=== PATIENT | female | born 1960 | race Caucasian/White ===

== ENCOUNTER 2016-12-17 20:36 | Emergency (ER) | payer OTHER, MEDICAID ==
--- NOTE | 2016-12-17 21:20 | EDPHY ---
H & P Stated Complaint: abd pain, hx hernia, ETOH abuse Time Seen by Provider: 12/17/16 21:19 - Personal History Current Tetanus/Diphtheria Vaccine: Unsure Current Tetanus Diphtheria and Acellular Pertussis (TDAP): Unsure - Medical/Surgical History Hx Asthma: No Hx Chronic Respiratory Disease: Yes Hx Diabetes: No Hx Cardiac Disease: No Hx Renal Disease: No Hx Cirrhosis: No Hx Alcoholism: Yes Hx HIV/AIDS: No Hx Splenectomy or Spleen Trauma: No Other PMH: COPD, arthritis, ETOH abuse, hernia, appendectomy, tubal ligation - Social History Smoking Status: Current every day smoker Constitutional: Initial Vital Signs Temperature (C) 36.6 C 12/17/16 20:52 Heart Rate 99 12/17/16 20:52 Respiratory Rate 19 12/17/16 20:52 Blood Pressure 144/111 H 12/17/16 20:52 O2 Sat (%) 94 12/17/16 20:52 O2 Delivery Mode Nasal Cannula O2 (L/minute) 4 Allergies/Adverse Reactions: aspirin [Aspirin] Allergy (Verified 12/17/16 20:49) Home Medications: Medication Instructions Recorded Advair 100/50 (*) 12/17/16 Duoneb (*) 12/17/16 Guaifenesin 12/17/16 Hydrocodone Bit/Acetaminophen 12/17/16 Lisinopril 12/17/16 Prevacid 12/17/16 Tylenol Arthritis 12/17/16 Ventolin Hfa Inhaler 12/17/16 Vitamin D3 12/17/16 traMADol 12/17/16 Medical Decision Making ED Course/Re-evaluation: CHIEF COMPLAINT: "My stomach" HISTORY OF PRESENT ILLNESS: The patient is a 56 y/o female, with a history of alcohol abuse and disability, complaining of diffuse abdominal pain for the past several weeks. She has been evaluated in the ED previously for these complaints several months ago and advised to reduce her alcohol intake. She endorses drinking alcohol today. She denies other complaints. REVIEW OF SYSTEMS: A 10 point review of systems was performed and is negative with the exception of the elements mentioned in the history of present illness. PHYSICAL EXAM: HR, BP, O2 Sat, RR. Temp noted General Appearance: Alert, well hydrated, appropriate, and cachectic, smells of alcohol Head: Atraumatic without scalp tenderness or obvious injury Eyes: Pupils equal, round, reactive to light and accommodation, EOMI, no trauma , no injection. Ears: Clear bilaterally, no perforation, normal landmarks Nose: Atraumatic, no rhinorrhea, clear. Throat: There is no erythema or exudates, no lesions, normal tonsils, mucus membranes moist. Neck: Supple, 2+ carotid upstroke, nontender, no lymphadenopathy. Respiratory: No retractions, no distress, no wheezes, and no accessory muscle use. Lungs are clear to auscultation bilaterally. Cardiovascular: Regular rate and rhythm, no murmurs, rubs, or gallops. Bilateral carotid, radial, dorsalis pedis, and posterior tibial pulses intact. Good capillary refill all extremities. Gastrointestinal: Abdomen is soft, nontender, non-distended, no masses, no rebound, no guarding, no peritoneal signs. Musculoskeletal: Normal active ROM of all extremities, atraumatic. Neurological: Alert, appropriate, and interactive. The patient has normal DTRs and non-focal cranial nerves, motor, sensory, and cerebellar exam. Skin: No rashes, good turgor, no nodules on palpation. Past medical history: Alcohol abuse, emphysema, oxygen dependence, wheelchair- bound due to leg injury Past surgical history: Noncontributory Family history: Noncontributory Social history: Lives at [facility] DIAGNOSTICS/PROCEDURES/CRITICAL CARE TIME: Study: CT of the Abdomen Indication: Pain Results: CT scan of the abdomen was obtained. The results of the study are negative for acute process. The study was read by the radiologist, Dr. Richardson. I viewed the images myself on the PACS system. DIFFERENTIAL DIAGNOSIS: The differential diagnosis for the patient's abdominal pain included but was not limited to ovarian cyst, pelvic inflammatory disease, ovarian torsion, urinary tract infection, ectopic , cholecystitis, and appendicitis. MEDICAL DECISION MAKING: This is a chronically-ill 56 y/o female arriving from her assisted living facility complaining of chronic abdominal pain. She is unable to provide clear description of her pain or symptoms. She says these are the same symptoms she had several months ago when she was told to reduce her alcohol intake. Her abdominal exam is benign today. Plan for IV. Labs drawn including CBC, CHEM, lipase, LFT. ISTAT ordered. Plan for abdominal CT to rule out acute process. CT is negative for acute process. Patient will be discharged home with referral to PCP for follow up. I advised her to reduce her alcohol intake as this is likely a contributing factor for her pain. - Data Points Laboratory Results: Laboratory Results 12/17/16 20:45 12/17/16 20:45 12/17/16 12/17/16 21:30 20:45 WBC 7.46 10^3/uL (3.80-9.50) RBC 4.07 L 10^6/uL (4.18-5.33) Hgb 13.1 g/dL (12.6-16.3) POC Hgb 12.2 L gm/dL (12.3-15.9) Hct 38.8 % (38.0-47.0) POC Hct 36 % (35.5-47.5) MCV 95.3 fL (81.5-99.8) MCH 32.2 pg (27.9-34.1) MCHC 33.8 g/dL (32.4-36.7) RDW 11.9 % (11.5-15.2) Plt Count 237 10^3/uL (150-400) MPV 8.8 fL (8.7-11.7) Neut % (Auto) 39.7 % (39.3-74.2) Lymph % (Auto) 46.8 H % (15.0-45.0) Josephine % (Auto) 10.2 % (4.5-13.0) Eos % (Auto) 2.3 % (0.6-7.6) Baso % (Auto) 0.7 % (0.3-1.7) Nucleat RBC Rel Count 0.0 % (0.0-0.2) Absolute Neuts (auto) 2.97 10^3/uL (1.70-6.50) Absolute Lymphs (auto) 3.49 H 10^3/uL (1.00-3.00) Absolute Monos (auto) 0.76 10^3/uL (0.30-0.80) Absolute Eos (auto) 0.17 10^3/uL (0.03-0.40) Absolute Basos (auto) 0.05 10^3/uL (0.02-0.10) Absolute Nucleated RBC 0.00 10^3/uL (0-0.01) Immature Gran % 0.3 % (0.0-1.1) Immature Gran # 0.02 10^3/uL (0.00-0.10) POC Sodium 142 mEq/L (134-144) Sodium 138 mEq/L (134-144) POC Potassium 4.0 mEq/L (3.3-5.0) Potassium 4.5 mEq/L (3.5-5.2) POC Chloride 101 mEq/L (96-108) Chloride 97 mEq/L (97-110) Carbon Dioxide 33 H mEq/l (22-31) Anion Gap 8 mEq/L (8-16) POC BUN 11 mg/dL (7-23) BUN 12 mg/dL (7-23) Creatinine 0.7 mg/dL (0.6-1.0) POC Creatinine 0.9 mg/dL (0.6-1.2) Estimated GFR > 60 Glucose 108 H mg/dL (70-100) POC Glucose 103 H mg/dL (70-100) Calcium 9.0 mg/dL (8.5-10.4) Total Bilirubin 0.3 mg/dL (0.1-1.4) Conjugated Bilirubin 0.3 mg/dL (0.0-0.5) Unconjugated Bilirubin 0.0 mg/dL (0.0-1.1) AST 21 IU/L (14-46) ALT 32 IU/L (9-52) Alkaline Phosphatase 75 IU/L (38-126) Total Protein 7.3 g/dL (6.3-8.2) Albumin 4.2 g/dL (3.5-5.0) Lipase 208.0 IU/L (23-300) Point of Care Test Results: 12/17/16 21:30 POC Sodium 142 POC Potassium 4.0 POC Chloride 101 POC BUN 11 POC Creatinine 0.9 POC Glucose 103 H Departure - Departure Disposition: Home, Routine, Self-Care Clinical Impression: Abdominal pain Qualifiers: Qualifier Code: (R10.84) Generalized abdominal pain Alcohol intoxication Qualifiers: Qualifier Code: (F10.120) Alcohol abuse with intoxication, uncomplicated Instructions: Alcohol Intoxication (ED), Chronic Abdominal Pain (ED) Additional Instructions: Follow up with your primary care provider for symptoms not improved next week. Referrals: [facility] [Outside] - As per Instructions Report Scribed for: Jason Solomon Report Scribed by: Mely Bryant Date of Report: 12/17/16 Time of Report: 21:58
[2016-12-17 21:35] LABS: ALANINE AMINOTRANSFERASE 32 IU/L (9-52); ALBUMIN 4.2 g/dL (3.5-5.0); ALKALINE PHOSPHATASE 75 IU/L (38-126); ANION GAP 8 mEq/L (8-16); ASPARTATE AMINOTRANSFERASE 21 IU/L (14-46); BILIRUBIN,TOTAL 0.3 mg/dL (0.1-1.4); BILIRUBIN-CONJUGATED 0.3 mg/dL (0.0-0.5); CARBON DIOXIDE 33 mEq/l (22-31); CHLORIDE 97 mEq/L (97-110); CREATININE 0.7 mg/dL (0.6-1.0); GLOMERULAR FILTRATION RATE > 60; GLUCOSE 108 mg/dL (70-100); POTASSIUM 4.5 mEq/L (3.5-5.2); SODIUM 138 mEq/L (134-144); TOTAL PROTEIN 7.3 g/dL (6.3-8.2)
[2016-12-17 21:37] LABS: % IMMATURE GRANULYOCYTES 0.3 % (0.0-1.1); ABSOLUTE IMMATURE GRANULOCYTES 0.02 10^3/uL (0.00-0.10); ADD DIFF? NO; ADD MORPH? NO; ADD SCAN? NO; ATYPICAL LYMPHOCYTE FLAG 20 (0-99); FRAGMENT RBC FLAG 0 (0-99); HEMATOCRIT 38.8 % (38.0-47.0); HEMOGLOBIN 13.1 g/dL (12.6-16.3); LEFT SHIFT FLG 0 (0-99); LIPEMIA HEMOLYSIS FLAG 90 (0-99); MEAN CELL HEMOGLOBIN 32.2 pg (27.9-34.1); MEAN CELL HEMOGLOBIN CONCENTR. 33.8 g/dL (32.4-36.7); MEAN CELL VOLUME 95.3 fL (81.5-99.8); MEAN PLATELET VOLUME 8.8 fL (8.7-11.7); PLATELET CLUMPS FLAG 0 (0-99); PLATELET COUNT 237 10^3/uL (150-400); RED BLOOD CELL COUNT 4.07 10^6/uL (4.18-5.33); RED CELL DISTRIBUTION WIDTH 11.9 % (11.5-15.2)
[2016-12-17] MEDS ORDERED: IOPAMIDOL (ISOVUE-300) 100 ML BTL IV ONE (21:39)
--- NOTE | 2016-12-17 22:19 | CT ---
CT Scan of the Abdomen and Pelvis With Contrast Indication: Upper abdominal pain in a 56-year-old female. Technique: Multidetector CT images of the abdomen and pelvis were obtained following the uneventful i ntravenous administration of 90 mL Isovue-300 contrast. No oral contrast was administered. Axial imag es are obtained at 5 mm intervals and reformatted at 1.5 mm thickness. The examination is reviewed on the workstation at multiple window/level settings. Sagittal and coronal reformations are performed. Dose reduction techniques were utilized for this examination. No previous examinations are available for comparison. Abdomen: Lung bases: Normal. No pleural fluid. A moderate hiatal hernia is seen with approximately one quarter of the stomach present above the diap hragm. Liver: Normal. Biliary system: Normal gallbladder. No intra or extrahepatic dilatation. Spleen: Normal. Pancreas: Normal. Adrenals: Normal. Kidneys: No obstruction or solid masses. Abdominal Aorta: There is rather extensive aortic calcification without aneurysmal dilatation. There is also prominent calcified plaque seen involving the iliac arteries bilaterally which could result in hemodynamically significant stenosis. No bowel obstruction, ascites, or retroperitoneal lymphadenopathy. CT Pelvis Findings: The appendix is surgically absent. A few scattered colonic diverticula are seen w ithout diverticulitis. No ascites is appreciated. Severe degenerative changes are noted involving the right hip with an associated joint effusion. Impression: 1. No acute abdominal or pelvic abnormality. 2. Moderate-sized hiatal hernia. 3. Severe degenerative changes of the right hip. 4. See above report for additional findings. A preliminary report was called to Dr. Jason Solomon at 2215 hours in the Emergency Department.
[2016-12-17 22:27] VITALS: RESP 20; O2SAT 96
[2016-12-17 22:33] LABS: COLOR COLORLESS; LEUKOCYTE ESTERASE,URINE NEGATIVE (NEGATIVE); NITRITE,URINE NEGATIVE (NEGATIVE)
[2016-12-17 22:52] VITALS: BP 133/81; PULSE 78; TEMP 98.1
== END 2016-12-17 23:11 | disposition home or self-care (01) ==
LOC: EDUNIT#
DX: R10.84 Generalized abdominal pain (principal); F10.120 Alcohol abuse with intoxication, uncomplicated; J44.9 Chronic obstructive pulmonary disease, unspecified; F17.200 Nicotine dependence, unspecified, uncomplicated; Z90.49 Acquired absence of other specified parts of digestive tract
CPT/HCPCS: 74177; 99285; Q9967; 82947-QW

== ENCOUNTER 2018-04-10 08:08 | Day surgery (SDC) | payer OTHER, MEDICAID ==
[2018-04-10] MEDS ORDERED: LIDOCAINE 1% 2 ML INJ ID PRN (08:25)
[2018-04-10] MEDS ORDERED: LR 1,000 ML IV ONE (08:25)
--- NOTE | 2018-04-10 10:11 | PDGENHP ---
History & Physical Chief Complaint: n/v colon cancer screening History of Present Illness: hx n/v, abdo reynaga query reflux. needs screening colonoscopy Pertinent Past, Social, Family History: tobacco 1/2 ppd x 5 years, on anfd off priro to taht. alcohol once month. fhx - young from COPD, no knonw colon cancer Relevant Physical Exam: A+Ox3. occ wheeze, no rales or rhonchi. S1S2. +BS, soft epi tenderness Cardiorespiratory Assessment: class 3
--- NOTE | 2018-04-10 10:20 | PDANEPAE ---
ANE History of Present Illness n/v, screening ANE Past Medical History - Cardiovascular History Hx Hypertension: Yes Hx Arrhythmias: No Hx Chest Pain: Yes Hx Coronary Artery / Peripheral Vascular Disease: No Hx CHF / Valvular Disease: Yes Hx Palpitations: No - Pulmonary History Hx COPD: Yes Hx Asthma/Reactive Airway Disease: No Hx Recent Upper Respiratory Infection: Yes Hx Oxygen in Use at Home: No Hx Sleep Apnea: No Sleep Apnea Screening Result - Last Documented: Negative Pulmonary History Comment: 4 L N/C - Neurologic History Hx Cerebrovascular Accident: No Hx Seizures: No Hx Dementia: No - Endocrine History Hx Diabetes: No - Renal History Hx Renal Disorders: No - Liver History Hx Hepatic Disorders: No - Neurological & Psychiatric Hx Hx Neurological and Psychiatric Disorders: No - Cancer History Hx Cancer: No - GI History Hx Gastrointestinal Disorders: No - Surgical History Prior Surgeries: CATARACTS, APPY, SMALL BOWEL OBSTRUCTION, TUBES TIED, LEFT LEG SKIN GRAFTS, LEFT BREAST BX, LUNG BX ANE Review of Systems Review of Systems: ANE Patient History - Allergies Allergies/Adverse Reactions: aspirin [Aspirin] Allergy (Verified 04/10/18 08:32) - Home Medications Home Medications: Advair 100/50 (*) 12/17/16 [Last Taken 04/09/18] Duoneb (*) 12/17/16 [Last Taken 04/09/18] Guaifenesin 12/17/16 [Last Taken 04/09/18] Hydrocodone Bit/Acetaminophen 12/17/16 [Last Taken 04/09/18 23:00] Lisinopril 12/17/16 [Last Taken 04/09/18] Prevacid 12/17/16 [Last Taken 04/09/18] Tylenol Arthritis 12/17/16 [Last Taken 2 Weeks Ago ~03/27/18] Ventolin Hfa Inhaler 12/17/16 [Last Taken 04/10/18 06:00] Vitamin D3 12/17/16 [Last Taken 04/09/18] traMADol 12/17/16 [Last Taken 04/09/18] - NPO status NPO Since - Liquids (Date): 04/09/18 NPO Since - Liquids (Time): 23:00 NPO Since - Solids (Date): 04/09/18 NPO Since - Solids (Time): 07:30 - Smoking Hx Smoking Status: Current every day smoker ANE Labs/Vital Signs - Vital Signs Blood Pressure: 117/66 Heart Rate: 98 Respiratory Rate: 20 O2 Sat (%): 99 Height: 160.02 cm Weight: 56.245 kg ANE Physical Exam - Airway Neck exam: FROM Mallampati Score: Class 2 Mouth exam: poor dentition - Pulmonary Pulmonary: reduced air movement, expiratory wheeze - Cardiovascular Cardiovascular: regular rate and rhythym - ASA Status ASA Status: III ANE Anesthesia Plan Total IV Anesthesia: Yes
[2018-04-10] MEDS ORDERED: PROPOFOL/EMULSION 500 MG/50 ML BOTTLE IV ONE (10:22)
[2018-04-10] MEDS ORDERED: NALOXONE HCL 0.4 MG/ML INJ IVP PRN (10:50)
--- NOTE | 2018-04-10 10:54 | POSTANESTH ---
Post Anesthetic Evaluation Cardiovascular Status: Normal, Stable Respiratory Status: Normal, Stable Level of Consciousness/Mental Status: Can Participate in Eval Pain Control: Adequate, Prn Tx Ordered Nausea/Vomiting Control: Adequate, Prn Tx Ordered Complications Possibly Related to Anesthesia: None Noted
[2018-04-10] MEDS ORDERED: HYDROCODONE/APAP 5/325 TAB ONE (11:35)
--- NOTE | 2018-04-10 12:03 | GIREPORT ---
[facility] Surgical Services - Endoscopy Department Patient Name: Mena Hensley Procedure Date: 04/10/2018 10:31 AM Patient Type: Outpatient Attending MD/ ER Physician: Vinod Dyer Procedure: Colonoscopy Indications: Screening for colorectal malignant neoplasm Providers: Yaya Rubi MD Referring MD: Cyndy Emmanuel MD Medicines: Total IV Anesthesia (TIVA) = IV general w/o airway Complications: No immediate complications. Estimated blood loss: None. Description of Procedure: After obtaining informed consent, the scope was passed under direct vis ion. Throughout the procedure, the patient's blood pressure, pulse, and oxyg en saturations were monitored continuously. The was introduced through the anus and advanced to the terminal ileum, with identification of the appendic eal orifice and IC valve. The colonoscopy was performed without difficulty. The patient tolerated the procedure well. The quality of the bowel preparat ion was good. Findings: The digital rectal exam was normal. The terminal ileum appeared normal. A few medium-mouthed diverticula were found in the sigmoid colon and descending colon. The exam was otherwise without abnormality. Estimated Blood Loss: Estimated blood loss: none. Post Op Diagnosis: - The examined portion of the ileum was normal. - Diverticulosis in the sigmoid colon and in the descending colon. - The examination was otherwise normal. - No specimens collected. Recommendation: - High fiber diet indefinitely. - 30-35 grams of dietary fiber per day. Can use supplemental fiber. - A high fiber diet may decrease risk of complications from diverticulo sis. There is no need to avoid seeds or nuts. - Repeat colonoscopy in 10 years for screening purposes. - Patient has a contact number available for emergencies. The signs and symptoms of potential delayed complications were discussed with the pat ient. Return to normal activities tomorrow. Written discharge instructions we re provided to the patient. - Continue present medications. - Discharge patient to home (ambulatory). - Return to primary care physician as previously scheduled. - See EGD for other recommendations - Thank you for allowing me to help in your patient's care. Do not hesi dumont to call with any questions. Elicia Javier M.D Yaya Rubi MD 04/10/2018 12:03:18 PM This report has been signed electronicallyMathew MD Elicia Number of Addenda: 0 Note Initiated On: 04/10/2018 10:31 AM Total Procedure Duration Time 0 hours 10 minutes 56 seconds [email or web address]
[2018-04-10 12:05] VITALS: BP 137/70
--- NOTE | 2018-04-10 12:05 | GIREPORT ---
Formerly [facility] Surgical Services - Endoscopy Department Patient Name: Mena Hensley Procedure Date: 04/10/2018 10:15 AM Patient Type: Outpatient Attending MD/ ER Physician: Vinod Dyer Procedure: Upper GI endoscopy Indications: Epigastric abdominal pain, Nausea with vomiting Providers: Yaya Rubi MD Referring MD: Cyndy Emmanuel MD Medicines: Total IV Anesthesia (TIVA) = IV general w/o airway Complications: No immediate complications. Estimated blood loss: Minimal. Description of Procedure: After obtaining informed consent, the endoscope was passed under direct vision. Throughout the procedure, the patient's blood pressure, pulse, and oxygen saturations were monitored continuously. The Endoscope was intro duced through the mouth, and advanced to the third part of duodenum. The uppe r GI endoscopy was accomplished without difficulty. The patient tolerated th e procedure well. Findings: The examined esophagus was normal. A medium-sized hiatal hernia was present. Diffuse mild inflammation characterized by erythema, friability and granularity was found in the gastric antrum. Biopsies were taken with a cold forceps for histology. Estimated blood loss was minimal. The examined duodenum was normal. The exam was otherwise without abnormality. Estimated Blood Loss: Estimated blood loss was minimal. Post Op Diagnosis: - Normal esophagus. - Medium-sized hiatal hernia. - Gastritis. Biopsied. - Normal examined duodenum. - The examination was otherwise normal. Recommendation: - Await pathology results. - My office will call with the pathology result with 5-7 days. If you h ave not heard from my office by 12-14, do not assume the pathology is genie l, please call [phone] to get the pathology reults. - Use Prevacid (lansoprazole) 30 mg PO daily. akwe 30-60 minutes befoer breakfast - Use Zantac (ranitidine) 300 mg PO at bedtime. - Perform a colonoscopy today. - Return to GI clinic in 4 weeks. - Return to primary care physician as previously scheduled. - Thank you for allowing me to help in your patient's care. Do not hesi dumont to call with any questions. Attending Participation: I personally performed the entire procedure. Elicia Javier M.D Yaya Rubi MD 04/10/2018 12:04:27 PM This report has been signed electronicallyMathew MD Elicia Number of Addenda: 0 Note Initiated On: 04/10/2018 10:15 AM [email or web address]
== END 2018-04-10 12:20 | disposition home or self-care (01) ==
LOC: FSGY 08:08
PROVIDERS: ATTEND Internal Medicine Gastroenterology
PROC: 0DB68ZX Excision of Stomach, Via Natural or Artificial Opening Endoscopic, Diagnostic (ICD-10-PCS; principal; 2018-04-10 09:45)
PROC: 0DJD8ZZ Inspection of Lower Intestinal Tract, Via Natural or Artificial Opening Endoscopic (ICD-10-PCS; 2018-04-10 09:45)
DX: K57.30 Diverticulosis of large intestine without perforation or abscess without bleeding (principal); K44.9 Diaphragmatic hernia without obstruction or gangrene
CPT/HCPCS: J2704

== ENCOUNTER → 2018-07-11 | Outpatient (CLI) | payer OTHER, MEDICAID | DX: R13.10 Dysphagia, unspecified (principal); R10.11 Right upper quadrant pain; R11.0 Nausea; K44.9 Diaphragmatic hernia without obstruction or gangrene ==

== ENCOUNTER → 2019-02-08 | Outpatient (CLI) | payer OTHER, MEDICAID ==
[~2019-02-08] MED LIST: IOPAMIDOL (ISOVUE-300) 100 ML BTL ONE
== END ==
LOC: FIMAGING 14:45
PROVIDERS: ATTEND Surgery
DX: K43.9 Ventral hernia without obstruction or gangrene (principal)
CPT/HCPCS: 74177; Q9967

== ENCOUNTER 2019-02-13 07:31 | Inpatient (IN) | payer OTHER, MEDICAID ==
[2019-02-13] MEDS ORDERED: methylPREDNISolone SOD SUCC 125 MG/2 ML VIAL IVP ONE (07:36)
[2019-02-13] MEDS ORDERED: IPRATROPIUM/ALBUTEROL 3 ML DEYVIAL IH ONE (07:36)
--- NOTE | 2019-02-13 07:41 | EDPHY ---
H & P Time Seen by Provider: 02/13/19 07:35 HPI/ROS: CHIEF COMPLAINT: Shortness of breath HISTORY OF PRESENT ILLNESS: 59-year-old female with oxygen-dependent COPD presents with shortness of breath. Onset of productive cough and shortness of breath 3 days ago. Gradually increasing shortness of breath, now short of breath at rest. Cough is productive of yellowish sputum. Albuterol inhaler without relief. Albuterol nebulizer in route. No fever or chills. On 4 L of oxygen by nasal cannula chronically. REVIEW OF SYSTEMS: complete 10 point ROS reviewed and is negative except for the noted elements in the HPI - Medical/Surgical History Hx Asthma: No Hx Chronic Respiratory Disease: Yes Hx Diabetes: No Hx Cardiac Disease: No Hx Renal Disease: No Hx Cirrhosis: No Hx Alcoholism: Yes Hx HIV/AIDS: No Hx Splenectomy or Spleen Trauma: No Other PMH: COPD, arthritis, ETOH abuse, hernia, appendectomy, tubal ligation - Social History Smoking Status: Current every day smoker - Physical Exam Exam: General Appearance: Alert, pleasant, nontoxic Eyes: Pupils equal and round, no conjunctival pallor or injection ENT, Mouth: Mucous membranes moist Neck: Normal inspection Respiratory: Tachypneic, lungs are clear anteriorly Cardiovascular: Regular tachycardia Gastrointestinal: Abdomen is soft and nontender Neurological: A&O, nonfocal exam Skin: Warm and dry Extremities: Normal inspection Psychiatric: Mood and affect normal Constitutional: Initial Vital Signs Temperature (C) 37.2 C 02/13/19 07:31 Heart Rate 114 H 02/13/19 07:31 Respiratory Rate 20 02/13/19 07:31 Blood Pressure 118/67 02/13/19 07:31 O2 Sat (%) 100 02/13/19 07:31 O2 Delivery Mode Nasal Cannula O2 (L/minute) 6 Allergies/Adverse Reactions: aspirin [Aspirin] Allergy (Verified 02/13/19 07:37) Home Medications: Medication Instructions Recorded Albuterol [Proventil Inhaler HFA 2 puffs IH Q4H PRN 12/17/16 (*)] Cholecalciferol Vit D3 [Vitamin D3 4,000 units PO DAILY@08 12/17/16 2000 units tab (OTC)] Fluticasone/Salmeter 250/50Mcg 1 puffs IH BID 12/17/16 [Advair 250/50 (*)] Hydrocodone/APAP 5/325 [Mendon 1 each PO TID@10,14,23 12/17/16 5/325 (*)] Ipratropium/Albuterol [Duoneb (*)] 3 ml IH QID@07,11,15,19 12/17/16 Lisinopril [Zestril 5 mg (*)] 5 mg PO DAILY@08 12/17/16 guaiFENesin [Mucinex 600 MG (*)] 600 mg PO BID PRN 12/17/16 Acetaminophen [Tylenol ES 500 mg 1,000 mg PO TID PRN 02/13/19 (*)] Bisacodyl [Bisacodyl (*)] 5 mg PO PRN PRN 02/13/19 Docusate Sodium [Colace 100 MG (*)] 100 mg PO HS 02/13/19 Herbals/Supplements -Info Only 1 ea PO DAILY 02/13/19 Ipratropium/Albuterol [Duoneb (*)] 3 ml IH HS PRN 02/13/19 Lansoprazole [Prevacid] 30 mg PO DAILY@1130 02/13/19 Nystatin Powder [Mycostatin Powder 1 didier TP BID 02/13/19 (RX)] Ranitidine HCl [Zantac] 300 mg PO HS 02/13/19 Tiotropium Inhaler [Spiriva 18 mcg IH DAILY@1130 02/13/19 Handihaler] Medical Decision Making - Diagnostics Imaging Results: CXR: COPD, no definite infiltrate Imaging: I viewed and interpreted images myself ED Course/Re-evaluation: This patient presents with a COPD exacerbation and likely pneumonia. She meets SIRS criteria with tachycardia, tachypnea and leukocytosis. Initial lactate is normal. A DuoNeb and Solu-Medrol 125 mg IV given on patient arrival. Chest x- ray reveals no evidence of infiltrate. Blood cultures were drawn and antibiotics given because of concern for pneumonia. Feels slightly better after duoneb. Continued SOB and increased oxygen requirement, c/w COPD exacerbation. Doubt alternative dx such as PE or pulm edema. The hospitalist service was consulted for admission. Differential Diagnosis: includes though not limited to pneumonia, PE, empyema, pulm edema, ACS - Data Points Laboratory Results: Laboratory Results 02/13/19 07:55 02/13/19 07:55 Microbiology Results: MICROBIOLOGY 02/13/19 08:30 Blood Blood Culture - Preliminary 02/13/19 07:55 Blood Blood Culture - Preliminary Medications Given: Hydrocodone Bitart/Acetaminophen (Mendon 5/325) 1 tab PO TID@10,14,23 [facility] Stop: 02/23/19 17:29 Last Admin: 02/14/19 22:53 Dose: 1 tab Albuterol/Ipratropium (Duoneb) 3 ml IH Q6HRS [facility] Stop: 08/12/19 11:59 Last Admin: 02/15/19 05:20 Dose: 3 ml Azithromycin (Zithromax) 250 mg PO DAILY [facility] PRN Reason: Protocol Stop: 03/16/19 08:59 Last Admin: 02/14/19 09:12 Dose: 250 mg Cholecalciferol (Vitamin D) 4,000 units PO DAILY@08 [facility] Stop: 08/13/19 07:59 Last Admin: 02/14/19 09:12 Dose: 4,000 units Docusate Sodium (Colace) 100 mg PO HS [facility] Stop: 08/12/19 20:59 Last Admin: 02/14/19 19:56 Dose: 100 mg Enoxaparin Sodium (Lovenox) 40 mg SC DAILY [facility] Stop: 08/12/19 08:59 Last Admin: 02/14/19 09:12 Dose: 40 mg Famotidine (Pepcid) 40 mg PO HS [facility] Stop: 08/12/19 20:59 Last Admin: 02/14/19 19:56 Dose: 40 mg Guaifenesin (Mucinex) 600 mg PO BID PRN PRN Reason: congestion Stop: 08/12/19 17:06 Last Admin: 02/14/19 19:55 Dose: 600 mg Lisinopril (Zestril) 5 mg PO DAILY@08 [facility] Stop: 08/13/19 07:59 Last Admin: 02/14/19 09:14 Dose: 5 mg Melatonin (Melatonin) 3 mg PO HS [facility] Stop: 08/12/19 20:59 Last Admin: 02/15/19 00:51 Dose: Not Given Nicotine (Nicoderm Cq) 14 mg TD DAILY [facility] Stop: 08/13/19 17:44 Last Admin: 02/14/19 18:03 Dose: 14 mg Nystatin (Mycostatin Powder) 1 didier TP BID [facility] Stop: 03/15/19 20:59 Last Admin: 02/14/19 19:56 Dose: 1 didier Pantoprazole Sodium (Protonix) 40 mg PO DAILY@1130 [facility] Stop: 08/13/19 11:29 Last Admin: 02/14/19 11:46 Dose: 40 mg Prednisone (Prednisone) 20 mg PO BIDMEAL [facility] Stop: 08/12/19 17:59 Last Admin: 02/14/19 18:02 Dose: 20 mg Fluticasone/Salmeterol (Advair) 1 puffs IH BID [facility] Stop: 08/12/19 20:59 Last Admin: 02/14/19 21:15 Dose: 1 puffs Discontinued Medications Hydrocodone Bitart/Acetaminophen (Mendon 5/325) 1 tab PO EDNOW ONE Stop: 02/13/19 09:26 Last Admin: 02/13/19 09:29 Dose: 1 tab Albuterol/Ipratropium (Duoneb) 3 ml IH EDNOW ONE Stop: 02/13/19 07:37 Last Admin: 02/13/19 07:56 Dose: 3 ml Azithromycin 500 mg/ Sodium (Chloride) 255 mls @ 255 mls/hr IV EDNOW ONE PRN Reason: Protocol Stop: 02/13/19 09:43 Last Admin: 02/13/19 10:07 Dose: 255 mls Cefepime HCl 2 gm/ Sodium (Chloride) 100 mls @ 200 mls/hr IV EDNOW ONE PRN Reason: Protocol Stop: 02/13/19 09:09 Last Admin: 02/13/19 09:21 Dose: 100 mls Methylprednisolone Sodium Succinate (Solu-Medrol) 125 mg IVP EDNOW ONE Stop: 02/13/19 07:37 Last Admin: 02/13/19 07:56 Dose: 125 mg Departure - Departure Disposition: [facility] Acute Clinical Impression: Chronic obstructive pulmonary disease with acute exacerbation Pneumonia Qualifiers: Pneumonia type: due to unspecified organism Laterality: unspecified laterality Lung location: unspecified part of lung Qualified Code(s): J18.9 - Pneumonia, unspecified organism Condition: Fair
[2019-02-13 08:06] LABS: PLATELET COUNT 205 10^3/uL (150-400)
[2019-02-13] MEDS ORDERED: CEFEPIME HCL 2 GM in NS 100 ML IV ONE (08:40)
[2019-02-13] MEDS ORDERED: AZITHROMYCIN IV 500 MG in NS 250 ML IV ONE (08:44)
[2019-02-13] MEDS ORDERED: ZOLPIDEM TARTRATE 5 MG TAB PO PRN (08:56)
[2019-02-13] MEDS ORDERED: ACETAMINOPHEN 325 MG TAB PO PRN (08:56)
--- NOTE | 2019-02-13 09:00 | PDGENHP ---
History and Physical History and Physical: CC: Shortness of breath HISTORY: This patient with known severe COPD has had severe worsening shortness of breath and cough with production progressive over 4 days. She also has had some pain in the left upper anterior chest that is somewhat pleuritic. There is no swelling or pain in the legs. She thinks she may have had fever at home but did not measure. She comes into the ER today with severe respiratory distress. She came by paramedics transport. She has not been around anyone else who is sick, has had not had travel or recent hospitalization Notably she was seen by Dr. Tijerina in pulmonology clinic just recently for preop assessment as she is preparing to schedule of ventral hernia repair surgery with Dr. Kahn in the near future. She was felt to be stable at the time of her visit with Dr. Tijerina. At home she uses duo nebs, albuterol inhaler, Advair 250, Spiriva inhaler, and guaifenesin. Her symptoms are as above despite all of this treatment. In the ER she was felt to possibly have pneumonia and was given Rocephin, azithromycin, Solu-Medrol, bronchodilators. She feels slightly better after these treatments but still quite short of breath. ROS: A comprehensive 10 system review revealed no other significant findings She does not tolerate aspirin PAST MEDICAL HISTORY: Severe COPD Chronic hypoxemic respiratory failure Ongoing tobacco abuse History of alcohol abuse Hypertension Abdominal hernia ventral Multiple leg injuries Reflux Wheelchair-bound Appendectomy Breast surgery Tubal ligation FAMILY MEDICAL HISTORY: She is not aware of any family history but is not in close contact with her family SOCIAL HISTORY: Sounds like she has quit drinking but continues to smoke Chronically wheelchair-bound due to hip arthritis MEDICATIONS: The patients list has been reconciled by our clinical pharmacist in the EMR. I have reviewed the list and ordered appropriate medicines. PHYSICAL EXAMINATION: Vital Signs: Blood pressure stable, pulse 114, oxygenating on 4-6 L oxygen afebrile Gum Sprayer: Sinus Examination: General: alert, oriented, good mentation, relaxed Skin: warm, dry, good color, no rash HEENT: normal Neck: no mass or jvd Resps: Obviously labored with evidence of air hunger and use of accessory muscles of breathing Lungs: Absent breath sounds in that I can not actually hear them with my stethoscope during breathing Heart: regular, no murmur Abdomen: soft, nondistended, nontender, +BS, no mass Upper Extremities: normal Lower Extremities: no edema, warm No Bleeding or bruising Neurologic: normal speech/language, normal retort operator, no focal weakness IV site: looks normal LABORATORY DATA: WBC 11, hemoglobin 11, normocytic, platelets normal On chemistry the CO2 is elevated at 36, there is a normal anion gap and renal function and electrolytes. I have ordered a procalcitonin this comes back normal at 0.04 MICROBIOLOGY: Blood cultures obtained in the ER pending Respiratory pathogen panel has been done and is negative RADIOLOGY STUDIES: Two-view chest x-rays done in the ER and I reviewed the images which show severe COPD but nothing else acute ASSESSMENT: * Acute hypoxemic/hypercarbic resp failure, with chronic hypoxemic respiratory failure on 4 L at home * Acute copd exacerbation * suspect viral respiratory infection * ER diagnosis of pneumonia is not supported by CXR and there is no fever -I have checked a procalcitonin which is negative and respiratory pathogen panel which is also negative * Abdominal hernia supraumbilical for which she has been follow up with Dr. Kahn and has plans for surgery in the near future * Chronic knee ankle and toe pains and cramps; history of leg injuries; wheelchair-bound for severe hip arthritis * HTN * tobacco abuse, ongoing * Chronic alcohol abuse At this time she remains in some respiratory distress despite steroids and bronchodilators by nebulizer. The cause of this episode is unclear to me. Her chest x-ray is unrevealing other than evidence of COPD. She has no fever, normal procalcitonin, and negative respiratory pathogen PCR panel. Given her cough which is productive I would be concerned about infection. However with chest pain that she describes are also be worried about PE and will get a CT scan to evaluate that PLANS: * Inpatient admission to [facility] * Continue steroids high dose orally as well as scheduled bronchodilators, long- acting bronchodilator steroid combo * Flutter valve device * Will continue azithromycin at this time which was started in the ER * I have ordered a CT scan chest to rule out PE and look further for any signs of pneumonia * If there is evidence that we come up with of pneumonia will add Rocephin * I have asked for pulmonology consultation to at least have them aware of her presence and situation and K she worsens in which case she might need transfer to OR your ICU and assisted ventilation * I had a long talk with the patient about end of life care issues. At this point she would like to have full cor order in her chart however in the event that her condition changes at any point to where it was felt she would not survive a resuscitation attempt with her without return of circulation, she would want to be changed to no cor - I have ordered full cor I have reviewed the patient's case in detail with Dr. Breezy Cardozo I have reviewed the patient's past medical records as part of this assessment, including previous ER visit records and outpatient clinic records including pulmonology Clinic
[2019-02-13] MEDS ORDERED: HYDROCODONE/APAP 5/325 TAB PO ONE (09:25)
[2019-02-13] MEDS: IPRATROPIUM/ALBUTEROL 3 ML DEYVIAL IH SCH ×3 (14:19→22:06)
[2019-02-13] MEDS: ENOXAPARIN 40 MG/0.4 ML SYR SC SCH (16:44)
[2019-02-13] MEDS ORDERED: ALBUTEROL 60 PUFFS/8 GM MDI IH PRN (17:07)
[2019-02-13] MEDS ORDERED: BISACODYL 5 MG EC TAB PO PRN (17:07)
[2019-02-13] MEDS: HYDROCODONE/APAP 5/325 TAB PO SCH ×2 (17:32→23:05)
[2019-02-13] MEDS ORDERED: IOPAMIDOL (ISOVUE 370) 100 ML BTL IV ONE (17:40)
--- NOTE | 2019-02-13 17:58 | PDMN ---
Medical Necessity Medical necessity: Pt meets inpt criteria per MD order and MCG M-100, Chronic Obstructive Pulmonary Disease, A-2 days. 59 y/o w/hx severe COPD presents to ED w/worsening SOB, cough, and pleuritic cp, admitted w/COPD exacerbation, etiology unclear, persistent resp distress despite steroids and bronchodilators initially, tachycardic, needing 4-6 LO2 (uses 4 L chronically). Other PMH includes hx alcohol abuse, ongoing tobacco use, HTN, mult leg injuries, wc bound. Anticipate>2Mn for ongoing eval/managment of above given pt's severe underlying COPD w/current exacerbation and comorbidities.
[2019-02-13] MEDS: predniSONE 20 MG TAB PO SCH (18:46)
[2019-02-13] MEDS: guaiFENesin 600 MG TAB.ER PO PRN (21:29)
[2019-02-13] MEDS: FAMOTIDINE 20 MG TAB PO SCH (21:30)
[2019-02-13] MEDS: DOCUSATE SODIUM 100 MG CAP PO SCH (21:30)
[2019-02-13] MEDS: NYSTATIN POWDER 15 GM BTL TP SCH (21:30)
[2019-02-13] MEDS: FLUTICASONE/SALMETER 250/50MCG DISKUS IH SCH (22:04)
[2019-02-14] MEDS: MELATONIN 3 MG TAB PO SCH (00:08)
[2019-02-14] MEDS: IPRATROPIUM/ALBUTEROL 3 ML DEYVIAL IH SCH ×4 (05:16→21:15)
[2019-02-14] MEDS: HYDROCODONE/APAP 5/325 TAB PO SCH ×3 (09:12→22:53)
[2019-02-14] MEDS: AZITHROMYCIN 250 MG TAB PO SCH (09:12)
[2019-02-14] MEDS: CHOLECALCIFEROL VIT D3 2,000 UNITS TAB/CAP PO SCH (09:12)
[2019-02-14] MEDS: ENOXAPARIN 40 MG/0.4 ML SYR SC SCH (09:12)
[2019-02-14] MEDS: predniSONE 20 MG TAB PO SCH ×2 (09:14→18:02)
[2019-02-14] MEDS: LISINOPRIL 5 MG TAB PO SCH (09:14)
[2019-02-14] MEDS: FLUTICASONE/SALMETER 250/50MCG DISKUS IH SCH ×2 (09:15→21:15)
[2019-02-14] MEDS: NYSTATIN POWDER 15 GM BTL TP SCH ×2 (09:15→19:56)
[2019-02-14] MEDS: PANTOPRAZOLE SODIUM 40 MG TAB PO SCH (11:46)
--- NOTE | 2019-02-14 14:28 | HOSPPROG ---
Hospitalist Progress Note Assessment/Plan: 1. Acute hypoxemic/hypercarbic resp failure, with chronic hypoxemic respiratory failure on 4 L at home - Patient in respiratory distress on admission - In setting of COPD exacerbation, management as below - CXR on admission showing peribronchial thickening, COPD changes - CTA Chest performed on admission, negative for PE - Wean 02 as tolerated, back on home 4L this AM - Resp PCR negative on admission 2. Acute copd exacerbation - S/p IV Solumedrol in ED - Will continue Prednisone for total 5 day course (Day 2/5) - Continue Azithromycin for total 5 day course - Continue home inhalers, ordered scheduled and PRN nebs as IP 3. HTN - Continue home Lisinopril 4. Tobacco abuse, ongoing - Counseled on cessation - Nicotine patch if desired 5. Chronic alcohol abuse - Counseled on cessation - Monitor for signs of withdrawal FEN: Regular DVT PPx: Lovenox Code: FULL Dispo: Pending clinical course Subjective: Patient reports breathing is improved this AM Objective: Vital Signs Temp Pulse Resp BP Pulse Ox 36.8 C 93 22 H 99/58 L 95 02/14/19 12:40 02/14/19 12:40 02/14/19 12:40 02/14/19 12:40 02/14/19 12:40 02/13/19 02/14/19 02/15/19 05:59 05:59 05:59 Intake Total 670 Output Total 300 350 Balance 370 -350 - Physical Exam Constitutional: chronically ill appearing Eyes: PERRL Ears, Nose, Mouth, Throat: moist mucous membranes Cardiovascular: regular rate and rhythym Respiratory: no respiratory distress, expiratory wheeze Gastrointestinal: soft, non-tender abdomen Genitourinary: No riley in urethra Skin: warm Musculoskeletal: full muscle strength Neurologic: AAOx3 Psychiatric: interacting appropriately ICD10 Worksheet Patient Problems: Problems Problem Status Onset Alcohol intoxication Acute
--- NOTE | 2019-02-14 16:31 | ASMTCMCOM ---
CM Note CM Note Notes: Pt was admitted with a COPD exacerbation. She is a resident at the [facility] and is on 4L O2 at her baseline. PT/OT evals have not been ordered. She is currently on steroids. Anticipate she will d/c independent back to the [facility] however CM will continue to follow for any change in needs. D/C plan: anticipate d/c independent back to [facility] Date Signed: 02/14/2019 04:30 PM Electronically Signed By:TRENA Casey
[2019-02-14] MEDS: NICOTINE 14 MG/24 HR PATCH TD SCH (18:03)
[2019-02-14] MEDS: guaiFENesin 600 MG TAB.ER PO PRN (19:55)
[2019-02-14] MEDS: FAMOTIDINE 20 MG TAB PO SCH (19:56)
[2019-02-14] MEDS: DOCUSATE SODIUM 100 MG CAP PO SCH (19:56)
[2019-02-15] MEDS: MELATONIN 3 MG TAB PO SCH (00:51)
[2019-02-15] MEDS: IPRATROPIUM/ALBUTEROL 3 ML DEYVIAL IH SCH ×2 (05:20→11:01)
[2019-02-15 07:58] VITALS: BP 143/75
[2019-02-15] MEDS: CHOLECALCIFEROL VIT D3 2,000 UNITS TAB/CAP PO SCH (08:19)
[2019-02-15] MEDS: AZITHROMYCIN 250 MG TAB PO SCH (08:20)
[2019-02-15] MEDS: LISINOPRIL 5 MG TAB PO SCH (08:20)
[2019-02-15] MEDS: predniSONE 20 MG TAB PO SCH (08:20)
[2019-02-15] MEDS: ENOXAPARIN 40 MG/0.4 ML SYR SC SCH (08:21)
[2019-02-15] MEDS: NICOTINE 14 MG/24 HR PATCH TD SCH (08:22)
[2019-02-15] MEDS: NYSTATIN POWDER 15 GM BTL TP SCH (08:23)
[2019-02-15] MEDS: HYDROCODONE/APAP 5/325 TAB PO SCH (10:01)
[2019-02-15] MEDS: FLUTICASONE/SALMETER 250/50MCG DISKUS IH SCH (11:01)
--- NOTE | 2019-02-15 11:49 | PDIAF ---
- Diagnosis Diagnosis: COPD Exacerbation Code Status: Full Code - Medication Management Discharge Medications: electronically signed and located in the Home Medication List. - Orders Services needed: Home Care, Physical Therapy, Occupational Therapy Home Care Face to Face: I certify that this patient was under my care and that I had the required [id number] encounter meeting the encounter requirements on the discharge day. My findings support the fact that the patient is homebound as defined in Home Care Face to Face Continued: CMS Chapter 7 Medicare Benefits Manual 30.1.1 , The condition of the patient is such that there exists a normal inability to leave home and consequently, leaving home would require a considerable and taxing effort. Isolation Type: None - Follow Up Care Current Providers and Referrals: Patient,NotPresent [Unknown] - As per Instructions
[2019-02-15] MEDS: PANTOPRAZOLE SODIUM 40 MG TAB PO SCH (11:57)
--- NOTE | 2019-02-15 12:11 | ASMTCMCOM ---
CM Note CM Note Notes: D/W MD, patient medically ready for discharge today. Patient resides at [facility] and is safe to return. Spoke with Pavithra at [facility], all orders and scripts sent via [employer]. [facility], alerted Dotty. Patient required O2 en route, [facility] transport scheduled for 1300 today, RN aware[facility] Date Signed: 02/15/2019 12:11 PM Electronically Signed By:Dipit Liao RN
--- NOTE | 2019-02-15 12:12 | ASMTLACE ---
VANDANAE Length of stay for Answers: 2 days current admission Acuity / Level of Answers: Yes Care: Did the patient have an inpatient admission? Comorbidities - select Answers: Chronic pulmonary disease all that apply # of Emergency department Answers: 1-2 visits in the last 6 months Social determinants Answers: History of substance abuse (ETOH, street drugs, prescription drugs, etc.) Score: 11 Date Signed: 02/15/2019 12:12 PM Electronically Signed By:Dipti Liao RN
--- NOTE | 2019-02-15 15:27 | PDDCSUM ---
Discharge Summary Discharge Summary: Date of Admission: 02/13/2019 Date of Discharge: 02/15/2019 Consults: N/A Procedures: CXR, CTA Chest Followup: PCP Hospital Course Problem List: 1. Acute hypoxemic/hypercarbic resp failure, with chronic hypoxemic respiratory failure on 4 L at home - Patient in respiratory distress on admission - In setting of COPD exacerbation, management as below - CXR on admission showing peribronchial thickening, COPD changes - CTA Chest performed on admission, negative for PE - Wean 02 as tolerated, back on home 4L this AM - Resp PCR negative on admission 2. Acute copd exacerbation - S/p IV Solumedrol in ED - Will continue Prednisone for total 5 day course (Day 3/5) - Continue Azithromycin for total 5 day course (Day 3/5) - Continue home inhalers, ordered scheduled and PRN nebs as IP 3. HTN - Continue home Lisinopril 4. Tobacco abuse, ongoing - Counseled on cessation 5. Chronic alcohol abuse - Counseled on cessation - Monitored for signs of withdrawal Time spent on discharge was >35 minutes with >50% of time spent on patient education and counseling.
--- NOTE | 2019-02-16 15:31 | ASDISCHSUM ---
Discharge Information Plan Status:Assisted Living Medically Cleared to Leave: Discharge Date:02/15/2019 12:51 PM D/C Disposition:Assisted Living ADT D/C Disposition:Other Rehab, Not [place] Projected Discharge Date:02/15/2019 11:00 AM Transportation at D/C:ALS/BLS Discharge Delay Reason: Follow-Up Date:02/15/2019 11:00 AM Discharge Slot: Final Diagnosis: Placement Information Referral Type:Assisted Living Residence Referral ID:[id number] Provider Name:Christina Murillo [facility] Address 1:[address] Address 2: City:[place] Selection Factors: State:[place] Referral Type:*Home Health Care Services Referral ID:[id number] Provider [facility] [facility] [facility] [address] 2: City:[place] Selection Factors: State:[place] Patient Contact Information Contact Name:LUCINA Relationship:Son Address:[address] Work Phone: City:[facility] Phone: State/Zip Code:[place] [address] Email: Financial Information Financial Class:Medicare Advantage Plans Primary Plan Desc:[employer] [facility] MEDICARE Primary Plan Number:[id number] Secondary Plan Desc:MED[place] Secondary Plan Number:[id number] Assessment Information LACE LACE Length of stay for Answers: 2 days current admission Acuity / Level of Answers: Yes Care: Did the patient have an inpatient admission? Comorbidities - select Answers: Chronic pulmonary disease all that apply # of Emergency department Answers: 1-2 visits in the last 6 months Social determinants Answers: History of substance abuse (ETOH, street drugs, prescription drugs, etc.) Score: 11 Date Signed: 02/15/2019 12:12 PM Electronically Signed By:Dipti Liao RN [facility] CM Progress Note CM Note CM Note Notes: Pt was admitted with a COPD exacerbation. She is a resident at the [facility] and is on 4L O2 at her baseline. PT/OT evals have not been ordered. She is currently on steroids. Anticipate she will d/c independent back to the [facility] however CM will continue to follow for any change in needs. D/C plan: anticipate d/c independent back to [facility] Date Signed: 02/14/2019 04:30 PM Electronically Signed By:TRENA Casey [facility] CM Progress Note CM Note CM Note Notes: D/W , patient medically ready for discharge today. Patient resides at [facility] and is safe to return. Spoke with Pavithra at [facility], all orders and scripts sent via [employer]. Also referred patient to [facility] for PT/OT, alerted Pavithra. Patient required O2 en route, [facility] transport scheduled for 1300 today, RN aware. [facility] will obtain scripts from [facility]. Plan: [facility], [facility] PT/OT Date Signed: 02/15/2019 12:11 PM Electronically Signed By:Dipti Liao RN Intervention Information
== END 2019-02-15 12:51 | disposition home health service (06) | DRG 189 ==
LOC: EDUNIT# → OBSVTOIN 08:57 → F1N 13:37
PROVIDERS: ADMIT Internal Medicine; ATTEND Internal Medicine
DX: J96.21 Acute and chronic respiratory failure with hypoxia (principal); J44.1 Chronic obstructive pulmonary disease with (acute) exacerbation; J96.02 Acute respiratory failure with hypercapnia; I10 Essential (primary) hypertension; Z72.0 Tobacco use; Z99.81 Dependence on supplemental oxygen; Z99.3 Dependence on wheelchair; K43.9 Ventral hernia without obstruction or gangrene; G89.29 Other chronic pain; M16.0 Bilateral primary osteoarthritis of hip; F10.10 Alcohol abuse, uncomplicated
CPT/HCPCS: 96374; J0456; J0692; J1650; J2930; J7512; Q9967

== ENCOUNTER 2019-02-24 08:42 | Inpatient (IN) | payer OTHER, MEDICAID ==
[2019-02-24] MEDS ORDERED: ALBUTEROL 3 ML DEYVIAL IH ONE (08:53)
[2019-02-24] MEDS ORDERED: methylPREDNISolone SOD SUCC 125 MG/2 ML VIAL IVP ONE (08:53)
[2019-02-24] MEDS ORDERED: ALBUTEROL 3 ML DEYVIAL ONE (08:59)
--- NOTE | 2019-02-24 08:59 | EDPHY ---
H & P Time Seen by Provider: 02/24/19 08:49 HPI/ROS: CHIEF COMPLAINT: Shortness of breath HISTORY OF PRESENT ILLNESS: This is a 59-year-old female was admitted to the hospital recently on February 13 and discharged on February 15 for COPD exacerbation with bronchitis. Patient was discharged with 3 days of azithromycin and 3 days of prednisone. She reports improvement in her shortness of breath. However, over the last 2 days she has again noticed increased shortness of breath. Denies significant cough. No fever. No nausea , vomiting, or diarrhea. Patient is typically on 4 L O2. Today she was noted to be hypoxic on 4 L to 86% by paramedics. DuoNeb was administered in route which improved the patient's symptoms. She initially had 1-2 word dyspnea. Currently the patient is able to speak in brief sentences. Denies any chest pain. No palpitations. REVIEW OF SYSTEMS: A comprehensive 10 system review of systems was reviewed and is otherwise negative aside from elements mentioned in the history of present illness and medical decision making. PAST MEDICAL HISTORY: COPD, hypertension, ongoing tobacco use, chronic alcohol abuse. SOCIAL HISTORY: Currently lives at [facility]. Full cor. VITAL SIGNS Reviewed by me. GENERAL: Thin female, moderate respiratory distress, tachypneic. Significant accessory muscle use. HEENT: Atraumatic. Eyes: No icterus, no injection. Mouth: moist mucous membranes. No erythema or lesions. Neck: supple with no adenopathy. LUNGS: Markedly diminished throughout, faint wheezes auscultated in the right upper lobe. CARDIAC: Tachycardic, regular. No rubs murmurs or gallops auscultated. Heart sounds are somewhat distant and difficult to auscultate. ABDOMEN: Soft, patient has a hernia. Reducible. Nontender. No distension. BACK: No CVA tenderness. EXTREMITIES: No trauma. Slight edema of the left lower extremity.. NEURO: Alert and oriented, grossly nonfocal. SKIN: Warm and dry, no rash. PSYCHIATRIC: Normal mentation, no agitation. - Medical/Surgical History Hx Asthma: No Hx Chronic Respiratory Disease: Yes Hx Diabetes: No Hx Cardiac Disease: No Hx Renal Disease: No Hx Cirrhosis: No Hx Alcoholism: Yes Hx HIV/AIDS: No Hx Splenectomy or Spleen Trauma: No Other PMH: COPD, arthritis, ETOH abuse, hernia, appendectomy, tubal ligation - Social History Smoking Status: Current every day smoker Constitutional: Initial Vital Signs Temperature (C) 36.2 C 02/24/19 09:08 Heart Rate 114 H 02/24/19 09:08 Respiratory Rate 30 H 02/24/19 09:08 Blood Pressure 120/92 H 02/24/19 09:08 O2 Sat (%) 95 02/24/19 09:08 O2 Delivery Mode Nasal Cannula O2 (L/minute) 5 Allergies/Adverse Reactions: aspirin [Aspirin] Allergy (Verified 02/13/19 07:37) Home Medications: Medication Instructions Recorded Albuterol [Proventil Inhaler HFA 2 puffs IH Q4H PRN 12/17/16 (*)] Cholecalciferol Vit D3 [Vitamin D3 4,000 units PO DAILY@08 12/17/16 2000 units tab (OTC)] Fluticasone/Salmeter 250/50Mcg 1 puffs IH BID 12/17/16 [Advair 250/50 (*)] Hydrocodone/APAP 5/325 [Elmer 1 each PO TID@,14,23 12/17/16 5/325 (*)] Ipratropium/Albuterol [Duoneb (*)] 3 ml IH QID@07,11,15,19 12/17/16 Lisinopril [Zestril 5 mg (*)] 5 mg PO DAILY@08 12/17/16 guaiFENesin [Mucinex 600 MG (*)] 600 mg PO BID PRN 12/17/16 Acetaminophen [Tylenol ES 500 mg 1,000 mg PO TID PRN 02/13/19 (*)] Bisacodyl [Bisacodyl (*)] 5 mg PO PRN PRN 02/13/19 Docusate Sodium [Colace 100 MG (*)] 100 mg PO HS 02/13/19 Herbals/Supplements -Info Only 1 ea PO DAILY 02/13/19 Ipratropium/Albuterol [Duoneb (*)] 3 ml IH HS PRN 02/13/19 Lansoprazole [Prevacid] 30 mg PO DAILY@1130 02/13/19 Nystatin Powder [Mycostatin Powder] 1 didier TP BID 02/13/19 Ranitidine HCl [Zantac] 300 mg PO HS 02/13/19 Tiotropium Inhaler [Spiriva 18 mcg IH DAILY@1130 02/13/19 Handihaler] Azithromycin [Zithromax] 250 mg PO DAILY #3 tab 02/15/19 predniSONE 20 mg PO BIDMEAL #7 tablet 02/15/19 Medical Decision Making - Diagnostics EKG Interpretation: 12-LEAD EKG: Please see the full report in Trace Master. My interpretation: Sinus tachycardia frequent PVCs Imaging Results: Imaging Impressions Chest X-Ray 02/24/19 08:53 Impression: Findings consistent with COPD/airways disease are identified. Imaging: I viewed and interpreted images myself ED Course/Re-evaluation: 59-year-old female presents in respiratory distress, hypoxic, with end-tidal CO2 of 50 per the paramedics. Continuous neb was started by respiratory therapy. Chest x-ray demonstrates no infiltrate. Labs demonstrate a a CO2 of 37, normal white count. Respiratory pathogen panel is pending at this time. Patient was admitted to the hospital, to step-down for continuous respiratory support. Respiratory pathogen panel positive for rush virus. Negative for influenza. Differential Diagnosis: Differential diagnosis for the patient's shortness of breath was considered including but not limited to pulmonary infectious processes, COPD exacerbation, pulmonary emboli, pulmonary edema, congestive heart failure, and cardiac causes. Consult/Admit Bed Type: Dr. Shaikh, step-down - Data Points Laboratory Results: Laboratory Results 02/24/19 08:40 02/24/19 08:40 02/24/19 02/24/19 02/24/19 08:50 08:40 08:40 WBC 9.13 10^3/uL 10^3/uL (3.80-9.50) RBC 3.74 10^6/uL L 10^6/uL (4.18-5.33) Hgb 11.4 g/dL L g/dL (12.6-16.3) Hct 35.3 % L % (38.0-47.0) MCV 94.4 fL fL (81.5-99.8) MCH 30.5 pg pg (27.9-34.1) MCHC 32.3 g/dL L g/dL (32.4-36.7) RDW 12.0 % % (11.5-15.2) Plt Count 229 10^3/uL 10^3/uL (150-400) MPV 8.6 fL L fL (8.7-11.7) Neut % (Auto) 77.2 % H % (39.3-74.2) Lymph % (Auto) 10.1 % L % (15.0-45.0) [place] % (Auto) 10.0 % % (4.5-13.0) Eos % (Auto) 1.9 % % (0.6-7.6) Baso % (Auto) 0.5 % % (0.3-1.7) Nucleat RBC Rel Count 0.0 % % (0.0-0.2) Absolute Neuts (auto) 7.05 10^3/uL H 10^3/uL (1.70-6.50) Absolute Lymphs (auto) 0.92 10^3/uL L 10^3/uL (1.00-3.00) Absolute Monos (auto) 0.91 10^3/uL H 10^3/uL (0.30-0.80) Absolute Eos (auto) 0.17 10^3/uL 10^3/uL (0.03-0.40) Absolute Basos (auto) 0.05 10^3/uL 10^3/uL (0.02-0.10) Absolute Nucleated RBC 0.00 10^3/uL 10^3/uL (0-0.01) Immature Gran % 0.3 % % (0.0-1.1) Immature Gran # 0.03 10^3/uL 10^3/uL (0.00-0.10) Sodium 134 mEq/L L mEq/L (135-145) Potassium 4.4 mEq/L mEq/L (3.5-5.2) Chloride 92 mEq/L L mEq/L (97-110) Carbon Dioxide 37 mEq/l H mEq/l (22-31) Anion Gap 5 mEq/L L mEq/L (6-14) BUN 9 mg/dL mg/dL (7-23) Creatinine 0.6 mg/dL mg/dL (0.6-1.0) Estimated GFR > 60 Glucose 108 mg/dL H mg/dL (70-100) Calcium 9.4 mg/dL mg/dL (8.5-10.4) POC Troponin I 0.01 ng/mL ng/mL (0.00-0.08) NT-Pro-B Natriuret Pep 107 pg/mL pg/mL (0-125) Microbiology Results: MICROBIOLOGY 02/24/19 09:05 Nasal, Sinus - Anaerobic Tube/Swab Respiratory Panel (PCR) - Final Coronavirus Nl63 Detected Medications Given: Albuterol/Ipratropium (Duoneb) 3 ml IH Q6HRS OLEG Stop: 08/23/19 11:59 Last Admin: 02/24/19 11:49 Dose: 3 ml Methylprednisolone Sodium Succinate (Solu-Medrol) 40 mg IVP Q6HRS OLEG Stop: 08/23/19 11:59 Last Admin: 02/24/19 12:46 Dose: 40 mg Discontinued Medications Albuterol (Proventil Neb) 3 ml IH EDNOW ONE Stop: 02/24/19 08:54 Last Admin: 02/24/19 09:38 Dose: Not Given Lorazepam (Ativan Injection) 1 mg IVP EDNOW ONE Stop: 02/24/19 09:18 Last Admin: 02/24/19 09:37 Dose: 1 mg Methylprednisolone Sodium Succinate (Solu-Medrol) 125 mg IVP EDNOW ONE Stop: 02/24/19 08:54 Last Admin: 02/24/19 09:37 Dose: 125 mg Point of Care Test Results: Chemistry 02/24/19 08:50 POC Troponin I 0.01 ng/mL ng/mL (0.00-0.08) Departure - Departure Disposition: [facility] Inpatient Acute Clinical Impression: Chronic obstructive pulmonary disease with acute exacerbation Respiratory failure Qualifiers: Chronicity: acute Respiratory failure complication: hypoxia and hypercapnia Qualified Code(s): J96.01 - Acute respiratory failure with hypoxia Condition: Serious
[2019-02-24 09:00] LABS: PLATELET COUNT 229 10^3/uL (150-400)
[2019-02-24] MEDS ORDERED: LORazepam 2 MG/ML INJ IVP ONE (09:17)
[2019-02-24] MEDS ORDERED: ONDANSETRON 4 MG/2 ML VIAL IVP PRN (10:44)
--- NOTE | 2019-02-24 11:06 | PDGENHP ---
History and Physical History and Physical: CC: Shortness of breath HISTORY: This patient comes in with severe worsening shortness of breath today. She had notably was just admitted here February 13 for COPD exacerbation discharged on February 15. She has been on albuterol prednisone and Advair in the interim. There was no infection identified at the time of the previous admission, and a CT scan done then showed no infiltrates or PE. There was not any right-sided heart failure at the time. This morning she noticed severe increased work of breathing, with productive cough, she is not certain about fevers. She has no chest pain. There is no pain or swelling in her legs. She does live in a senior care community where there are a number of other people with respiratory symptoms currently. She received DuoNeb and then continuous albuterol nebulizer in the ER today today, but did not have any improvement in her symptoms. She was transferred up to ICU or I am meeting her. A my visit with her she is short of breath with significant labored breathing. Notably she was seen by Dr. Tijerina in pulmonology clinic just recently for preop assessment as she is preparing to schedule of ventral hernia repair surgery with Dr. Kahn in the near future. She was felt to be stable at the time of her visit with Dr. Tijerina. At home she uses duo nebs, albuterol inhaler, Advair 250, Spiriva inhaler, and guaifenesin. Her symptoms are as above despite all of this treatment. ROS: A comprehensive 10 system review revealed no other significant findings PAST MEDICAL HISTORY: Severe COPD Chronic hypoxemic respiratory failure Ongoing tobacco abuse History of alcohol abuse now sober Hypertension Abdominal hernia ventral Multiple leg injuries Reflux Wheelchair-bound Appendectomy Breast surgery Tubal ligation FAMILY MEDICAL HISTORY: She is not aware of any family history but is not in close contact with her family SOCIAL HISTORY: Sounds like she has quit drinking but continues to smoke Chronically wheelchair-bound due to hip arthritis MEDICATIONS: The patients list has been reconciled by our clinical pharmacist in the EMR. I have reviewed the list and ordered appropriate medicines. She does not tolerate aspirin PHYSICAL EXAMINATION: Vital Signs: Blood pressure stable, pulse 114, oxygenating on 4-6 L oxygen afebrile Returned Case Inspector: Sinus Examination: General: alert, oriented, good mentation Skin: warm, dry, good color, no rash HEENT: normal Neck: no mass or jvd Resps: Markedly increased work of breathing during my exam Lungs: Severely diminished breath sounds Heart: Tachycardic but regular, no murmur Abdomen: soft, nondistended, nontender, +BS, no mass Upper Extremities: normal Lower Extremities: no edema, warm No Bleeding or bruising Neurologic: normal speech/language, normal manager china, no focal weakness IV site: looks normal LABORATORY DATA: Elevated CO2 at 36 on chemistry Normal renal function electrolytes Normal troponin WBC normal, mild anemia MICROBIOLOGY: Blood cultures obtained in the ER pending Respiratory pathogen panel positive for rush virus RADIOLOGY STUDIES: Two-view chest x-rays done in the ER and I reviewed the images which show severe COPD with market hyperexpansion but nothing else acute ASSESSMENT: * Acute hypoxemic/hypercarbic resp failure, with chronic hypoxemic respiratory failure on 4 L at home * Acute copd exacerbation * Acute rush virus infection * Abdominal hernia supraumbilical for which she has been follow up with Dr. Kahn and has plans for surgery in the near future * Chronic knee ankle and toe pains and cramps; history of leg injuries; wheelchair-bound for severe hip arthritis * HTN * tobacco abuse, ongoing * Chronic alcohol abuse At this point the patient remains with marked dyspnea and labored breathing after significant bronchodilator and steroid doses administered in the ER PLANS: * Inpatient admission to ICU * Continue steroids as well as scheduled bronchodilators, long-acting bronchodilator steroid combo * Flutter valve device * She has just completed a course of azithromycin and I do not think at the moment that repeating that is likely to be helpful * I have asked for pulmonology consultation * I had a long talk with the patient about end of life care issues. At this point she would like to have full cor order in her chart however in the event that her condition changes at any point to where it was felt she would not survive a resuscitation attempt with her without return of circulation, she would want to be changed to no cor - I have ordered full cor I have reviewed the patient's case in detail with Dr. Brennen Geronimo I have reviewed the patient's past medical records as part of this assessment, including previous hospital records and outpatient clinic records including pulmonology Clinic
[2019-02-24] MEDS: IPRATROPIUM/ALBUTEROL 3 ML DEYVIAL IH SCH ×3 (11:49→22:39)
[2019-02-24] MEDS: methylPREDNISolone SOD SUCC 40 MG/ML VIAL IVP SCH ×2 (12:46→18:03)
--- NOTE | 2019-02-24 15:35 | CPEKG ---
Test Reason : OPEN Blood Pressure : / mmHG Vent. Rate : 115 BPM Atrial Rate : 115 BPM P-R Int : 211 ms QRS Dur : 066 ms QT Int : 312 ms P-R-T Axes : 088 068 -59 degrees QTc Int : 432 ms Sinus tachycardia Multiple ventricular premature complexes Borderline prolonged [place] interval Low voltage, extremity leads Anteroseptal infarct, old Confirmed by Angella Wilson ([id number]) on 02/24/2019 3:35:06 PM Referred By: Angella Wilson Confirmed By:Angella Wilson
[2019-02-24] MEDS ORDERED: guaiFENesin 600 MG TAB.ER PO PRN (16:27)
[2019-02-24] MEDS ORDERED: BISACODYL 5 MG EC TAB PO PRN (16:27)
[2019-02-24] MEDS: ACETAMINOPHEN 325 MG TAB PO PRN (18:04)
--- NOTE | 2019-02-24 18:06 | GCON ---
[f rep st] CONSULTATION PULMONARY CRITICAL CARE CONSULTATION DATE OF CONSULTATION: 02/24/2019 REASON FOR CONSULTATION: COPD exacerbation secondary to coronavirus. HISTORY: The patient is a pleasant 59-year-old. She has severe underlying COPD secondary to a long history of tobacco abuse, having smoked a pack and half a day for over 30 years. She is followed by Trip Tijerina MD in our office. Spirometry done earlier this month showed a forced vital capacity 1 .07 L, 38% of predicted and an FEV1 is 0.35 L, 16% of predicted. The ratio was 33%. She was recentl y hospitalized at [facility] for a COPD exacerbation. She was here for 2 days, discharged a l ittle over a week ago. She had done fairly well initially. However, this morning she noted increase d pulmonary congestion and shortness of breath with the onset of a productive cough. She may have encarnacion d a low-grade fever. She was seen in the emergency department and given albuterol. Chest x-ray does not show evidence of pneumonia. Hyperexpansion and peribronchial thickening are noted. In the ICU, she is being treated with DuoNebs, p.r.n. albuterol, Advair, Solu-Medrol, and mucolytics. She states she feels better after initial rounds of treatment. PAST MEDICAL HISTORY: Remarkable for severe underlying COPD and ongoing tobacco abuse. She is on 4 L of oxygen continually at home. There is a previous history of alcohol abuse, no longer drinking. Other problems include systemic hypertension, gastroesophageal reflux disease, arthritis for which tanya thorpe is wheelchair bound, and previous injury to the leg. MEDICATIONS: Listed medications include DuoNebs, ranitidine, Cowen, Advair, prednisone 20 mg twice d aily. On admission, guaifenesin, Spiriva, albuterol, acetaminophen, Prevacid, and lisinopril. DRUG ALLERGIES: Aspirin. FAMILY HISTORY: Noncontributory. SOCIAL HISTORY: She lives in a chcf community. Other individuals in that community have had c hest colds. She continues to smoke cigarettes, approximately a half pack per day. She is no longer drinking. REVIEW OF SYSTEMS: A 10-point review of systems is negative except as mentioned above. She is sched uled at some point in the future to have a ventral hernia repair with Dr. Kahn. PHYSICAL EXAMINATION: GENERAL: Reveals a thin woman who is in no acute distress. She has intermitt ent coughing. This is loose, rhonchi are audible. VITAL SIGNS: Blood pressure is 110/60, heart rat e 115 with sinus tachycardia on the monitor. She is afebrile. On 4 L, her baseline, saturations are 95%. Respiratory rate is approximately 26. HEENT: Unremarkable for lymphadenopathy or thyromegaly . Jugular venous pressure is not elevated. Mucous membranes are moist. CHEST: Reveals markedly de creased breath sounds bilaterally with a prolonged expiratory phase. End-expiratory wheezes are pres ent. Central rhonchi are present with cough. HEART: Tachycardic. Heart tones are quite distant. There is no obvious gallop. A soft systolic murmur appears to be present. P2 is increased. ABDOMEN : Soft, nontender. Bowel sounds are present. There is no tenderness. EXTREMITIES: Remarkable for only trace edema. NEUROLOGIC: Examination is unremarkable. She is oriented, alert. She moves all extremities equally. DATA BASE: Chest x-ray is negative for pneumonia as outlined above, consistent with COPD. White blo od cell count is 9100, hematocrit 35, platelets 229,000. Sodium is 134, potassium 4.4, BUN 9, with a creatinine of 0.6. CO2 is 37, glucose 108. Troponin and BNP are both negative. Respiratory panel PCR is positive for coronavirus. ASSESSMENT: 1. Chronic obstructive pulmonary disease exacerbation. 2. Acute bronchitis secondary to coronavirus. 3. History of other medical problems as outlined above, including systemic hypertension, arthritis a nd immobility, gastroesophageal reflux disease, etc. PLAN AND RECOMMENDATIONS: The patient will be kept in the intensive care unit on step-down status fo r now. Bronchodilator therapies, steroids, and mucolytics will be continued. She will be followed c losely. She has little in the way of pulmonary reserve. There is no indication for antibiotics at t his time. However, a sputum culture will be obtained and I will have a low threshold for starting an tibiotics if needed. Laboratory will be followed. Repeat chest x-ray can be obtained if needed. Sh ila is full code. If she progresses to respiratory failure, we may have difficulty getting her off the ventilator, as her pulmonary function is significantly impaired. Further plans and recommendations will be made based on her progress over the next 12 to 24 hours. /[id number]/MODL
[2019-02-24] MEDS: ALBUTEROL 60 PUFFS/8 GM MDI IH PRN (19:57)
[2019-02-24] MEDS: FLUTICASONE/SALMETER 250/50MCG DISKUS IH SCH (19:57)
[2019-02-24] MEDS: NYSTATIN POWDER 15 GM BTL TP SCH (21:00)
[2019-02-24] MEDS: FAMOTIDINE 20 MG TAB PO SCH (21:04)
[2019-02-24] MEDS: MELATONIN 3 MG TAB PO SCH (21:04)
[2019-02-24] MEDS: DOCUSATE SODIUM 100 MG CAP PO SCH (21:04)
[2019-02-24] MEDS: HYDROCODONE/APAP 5/325 TAB PO SCH (23:17)
[2019-02-25] MEDS: IPRATROPIUM/ALBUTEROL 3 ML DEYVIAL IH SCH ×4 (05:30→22:21)
[2019-02-25] MEDS: methylPREDNISolone SOD SUCC 40 MG/ML VIAL IVP SCH ×4 (05:46→17:23)
[2019-02-25] MEDS: ENOXAPARIN 40 MG/0.4 ML SYR SC SCH (08:48)
[2019-02-25] MEDS: CHOLECALCIFEROL VIT D3 2,000 UNITS TAB/CAP PO SCH (08:48)
[2019-02-25] MEDS: FAMOTIDINE 20 MG TAB PO SCH ×2 (08:48→21:22)
[2019-02-25] MEDS: LISINOPRIL 5 MG TAB PO SCH (08:48)
[2019-02-25] MEDS: NYSTATIN POWDER 15 GM BTL TP SCH ×2 (08:49→21:23)
[2019-02-25] MEDS: PRENATAL VIT 1 EACH TAB PO SCH (08:49)
[2019-02-25] MEDS: FLUTICASONE/SALMETER 250/50MCG DISKUS IH SCH ×2 (08:49→22:21)
[2019-02-25] MEDS: HYDROCODONE/APAP 5/325 TAB PO SCH ×3 (09:05→22:50)
[2019-02-25] MEDS ORDERED: PNEUMOCOCCAL 0.5ML VACCINE VIAL (PNEUMOVAX 23) IM ONE (09:13)
--- NOTE | 2019-02-25 10:36 | PDMN ---
Medical Necessity Medical necessity: MCG M100 COPD exacerbation: A-2 days; 59yoF pt presents with severe worsening SOB, with productive cough, sig. labored breathing, tachycardic, O2 req 4-6 L to keep sats in med 90's. audible rhonchi, end exp. wheezing, decreased breath sounds bilaterally. pt lives in care home community, PMHx: COPD, ongoing tobacco use, systemic HTN, gastroespohageal reflux, arthritis, pt is wheelchair bound, anticipate > 2 MN ongoing med nec care, further monitoring ,eval and tx.
[2019-02-25] MEDS: LANSOPRAZOLE SUSP 3 MG/ML UDSYR (Peds) PO SCH (11:01)
--- NOTE | 2019-02-25 11:36 | HOSPPROG ---
Hospitalist Progress Note Assessment/Plan: DIAGNOSES: * Acute hypoxemic/hypercarbic resp failure, with chronic hypoxemic respiratory failure on 4 L at home * Acute copd exacerbation * Acute rush virus infection * Abdominal hernia supraumbilical for which she has been follow up with Dr. Kahn and has plans for surgery in the near future * Chronic knee ankle and toe pains and cramps; history of leg injuries; wheelchair-bound for severe hip arthritis * HTN * tobacco abuse, ongoing * Protein calorie malnutrition, severe * Chronic alcohol abuse Respirations very tenuous with very poor functional reserve PLANS: * Continue care in ICU * Continue bronchodilators and steroid * Droplet precautions for rush virus * Nutrition supplements * Thiamine * DVT prophylaxis including Lovenox * Attempt activities as able SUBJECTIVE: Still severely dyspneic and weak Still with productive cough No pain OBJECTIVE Vitals reviewed: Tachycardic with heart rate 110-115, respirations 20s, go to 35 with sitting up in bed or after coughing; no fever Electrical Assistant, my review: Sinus tach Exam: alert oriented looks very fatigued skin warm dry color ok resps notably labored at rest on oxygen lungs nearly absent, with some bronchitic sounds heart regular abd soft nondistended nontender, bowel sounds present limbs warm, no edema Severe muscle wasting and absence of subcutaneous fat iv site ok I reviewed outpatient records Dr. Brennen Geronimo where she had pulmonary function test in in the pulmonology Clinic with FEV1 0.35 L Objective: Vital Signs Temp Pulse Resp BP Pulse Ox 36.1 C 113 H 29 H 105/78 96 02/25/19 08:00 02/25/19 08:00 02/25/19 08:00 02/25/19 08:00 02/25/19 08:00 02/24/19 02/25/19 02/26/19 06:59 06:59 06:59 Intake Total 1100 Output Total 390 Balance 710 - Time Spent With Patient Time Spent with Patient: greater than 35 minutes Time Spent with Patient: Greater than 35 minutes spent on this patients care, greater than 50% of time spent counseling, educating, and coordinating care regarding the above mentioned plan. ICD10 Worksheet Patient Problems: Problems Problem Status Onset Chronic obstructive pulmonary disease with acute exacerbation Acute Respiratory failure Acute Alcohol intoxication Acute Pneumonia Acute
[2019-02-25] MEDS ORDERED: morphINE SR 15 MG TAB PO PRN (11:43)
[2019-02-25] MEDS ORDERED: guaiFENesin 600 MG TAB.ER PO PRN (11:47)
--- NOTE | 2019-02-25 11:52 | PDINTPN ---
Electronic Page Makeup System Operator Progress Note Assessment/Plan: Assessment: COPD exacerbation secondary to bronchitis/rush virus. Oxygenation at baseline. More short of breath, with lots of mucus, anxiety with coughing. Severe underlying COPD. FEV1 approximately 0.3 L. She has little in the way of pulmonary reserve. She is full cor and would require intubation if she progresses to respiratory failure. She may not have enough reserved to come off the ventilator if intubated. We need to have further discussions with her regarding advanced directives. Palliative care consultation may be indicated. Anxiety: Secondary to 1. Low-dose Xanax and low-dose MS Contin will be ordered , but held for sedation. Ongoing tobacco abuse: Will add nicotine patch. Prophylaxis: On enoxaparin and famotidine. Plan: Continue pulmonary therapies. Increased guaifenesin. Add low-dose Xanax and MS Contin for anxiety/dyspnea. Add nicotine patch. Continue care in the intensive care unit on step-down status. Await x-ray. Low threshold for addition of antibiotics. 35 min of critical care time spent directly with the patient. Discussed with hospitalist, nursing, respiratory, and the ICU multi disciplinary team. Subjective: Doing okay. Remains significantly short of breath with cough and mucus. She is able to expectorated. She gets short of breath and anxious with coughing episodes. Objective: Vital Signs Temp Pulse Resp BP Pulse Ox 36.1 C 105 H 23 H 105/78 99 02/25/19 08:00 02/25/19 11:33 02/25/19 11:33 02/25/19 08:00 02/25/19 11:33 02/24/19 02/25/19 02/26/19 05:59 05:59 05:59 Intake Total 1100 Output Total 390 Balance 710 CXR: Pending Physical Exam - Physical Exam General Appearance: alert, mild distress (With coughing), thin EENT: PERRL/EOMI, other (Nasal cannula in place at 4 L, her baseline. Saturations 99%.) Neck: normal inspection Respiratory: decreased breath sounds, rhonchi (Central rhonchi present with cough), prolonged expiration, No normal breath sounds (Extremely distant breath sounds. Moves very little air. No wheezing, not tight.) Cardiac/Chest: tachycardia (Sinus), systolic murmur, other (Increased P2), No gallop Abdomen: normal bowel sounds, non-tender, soft Pelvic Exam: other (Using bedside commode) Skin: normal color, warm/dry Extremities: pedal edema (Trace) Neuro/Psych: no motor/sensory deficits, No cognition abnormalities ICD10 Worksheet Patient Problems: Problems Problem Status Onset Alcohol intoxication Acute Chronic obstructive pulmonary disease with acute exacerbation Acute Pneumonia Acute Respiratory failure Acute
[2019-02-25] MEDS: ALPRAZolam 0.25 MG TAB PO PRN ×2 (11:54→17:23)
[2019-02-25] MEDS: guaiFENesin 600 MG TAB.ER PO SCH ×3 (12:18→21:22)
[2019-02-25] MEDS: NICOTINE 21 MG/24 HR PATCH TD SCH (12:18)
--- NOTE | 2019-02-25 16:53 | ASMTCASEMG ---
Living Arrangements What is your living Answers: Alone arrangement? Who do you live with? Type Of Residence What kind of residence do Answers: Apartment you live in? Discharge Plan Comments Coordination Status Comments Notes: Patient is a 59yo single female who was admitted for acute hypoxic respiratory failure, COPD exacerbation, rush virus infection, abdominal hernia,chronic knee ankle and toe pains,HTN, tobacco abuse and chronic ETOH use. Patient is full core currently but wants it changed if she will not survive a resusitation attempt per Dr. Shaikh. Cardiac rehab consult ordered. D/C plan TBD. CM will follow Date Signed: 02/25/2019 04:52 PM Electronically Signed By:Briana Gu LCSW
[2019-02-25] MEDS: DOCUSATE SODIUM 100 MG CAP PO SCH (21:22)
[2019-02-25] MEDS: MELATONIN 3 MG TAB PO SCH (21:22)
[2019-02-25] MEDS: PATCH REMOVAL 1 EA PATCH TD SCH (21:30)
[2019-02-26] MEDS: methylPREDNISolone SOD SUCC 40 MG/ML VIAL IVP SCH ×5 (00:32→22:59)
[2019-02-26 05:19] LABS: PLATELET COUNT 247 10^3/uL (150-400)
[2019-02-26] MEDS: IPRATROPIUM/ALBUTEROL 3 ML DEYVIAL IH SCH ×4 (05:41→22:50)
[2019-02-26] MEDS: guaiFENesin 600 MG TAB.ER PO SCH ×4 (05:53→21:15)
[2019-02-26] MEDS: ALPRAZolam 0.25 MG TAB PO PRN ×3 (05:53→22:59)
--- NOTE | 2019-02-26 09:49 | HOSPPROG ---
Hospitalist Progress Note Assessment/Plan: #Severe COPD with exacerbation: + Coronavirus -cont steroids, nebs -anxiety contributing. Agrees with xanax -Palliative care consulted for goals, symptom management #Acute hypoxemic/hypercarbic resp failure -due to above. Check ABG #Tobacco dependence: counseled on cessation #Severe protein caloric malnutrition: protein shakes #Chronic alcohol abuse: counseled on cessation #Anxiety: Prozac started today, uptitrate outpatient #DVT ppx: Lovenox #Disp: cont inpatient admission; still very dyspenic. Nebs, steroids Subjective: breathing better. Less anxious Objective: Vital Signs Temp Pulse Resp BP Pulse Ox 37.2 C 87 23 H 128/77 H 96 02/25/19 16:00 02/26/19 07:27 02/26/19 07:27 02/26/19 07:27 02/26/19 07:27 Microbiology 02/25/19 13:45 - Final Sputum, Expectorated Laboratory Results 02/26/19 04:53 02/26/19 04:53 02/25/19 02/26/19 02/27/19 05:59 05:59 05:59 Intake Total 1100 1250 Output Total 390 1550 Balance 710 -300 - Time Spent With Patient Time Spent with Patient: greater than 35 minutes Time Spent with Patient: Greater than 35 minutes spent on this patients care, greater than 50% of time spent counseling, educating, and coordinating care regarding the above mentioned plan. - Physical Exam Constitutional: cachectic Ears, Nose, Mouth, Throat: moist mucous membranes Cardiovascular: regular rate and rhythym Respiratory: expiratory wheeze, rhonchi Gastrointestinal: normoactive bowel sounds Genitourinary: no bladder fullness Skin: warm Musculoskeletal: full muscle strength Neurologic: AAOx3, CN II-XII Intact Psychiatric: interacting appropriately, anxious ICD10 Worksheet Patient Problems: Problems Problem Status Onset Chronic obstructive pulmonary disease with acute exacerbation Acute Respiratory failure Acute Alcohol intoxication Acute Pneumonia Acute
[2019-02-26] MEDS: THIAMINE HCL 100 MG TAB PO SCH (09:52)
[2019-02-26] MEDS: NICOTINE 21 MG/24 HR PATCH TD SCH (09:52)
[2019-02-26] MEDS: ENOXAPARIN 40 MG/0.4 ML SYR SC SCH (09:52)
[2019-02-26] MEDS: LISINOPRIL 5 MG TAB PO SCH (09:52)
[2019-02-26] MEDS: CHOLECALCIFEROL VIT D3 2,000 UNITS TAB/CAP PO SCH (09:52)
[2019-02-26] MEDS: FAMOTIDINE 20 MG TAB PO SCH ×2 (09:52→21:15)
[2019-02-26] MEDS: HYDROCODONE/APAP 5/325 TAB PO SCH ×2 (09:53→14:18)
[2019-02-26] MEDS: PRENATAL VIT 1 EACH TAB PO SCH (09:53)
[2019-02-26] MEDS: FLUTICASONE/SALMETER 250/50MCG DISKUS IH SCH ×2 (09:54→21:27)
[2019-02-26] MEDS: ALBUTEROL 60 PUFFS/8 GM MDI IH PRN (09:57)
[2019-02-26] MEDS: NYSTATIN POWDER 15 GM BTL TP SCH ×2 (09:59→21:15)
[2019-02-26] MEDS: BENZONATATE 100 MG CAP PO PRN (10:10)
[2019-02-26] MEDS: LANSOPRAZOLE SUSP 3 MG/ML UDSYR (Peds) PO SCH (11:53)
[2019-02-26] MEDS ORDERED: SODIUM CL NASAL 45 ML BTL EACHNARE PRN (14:15)
[2019-02-26] MEDS: FLUoxetine 10 MG CAP PO SCH (14:32)
[2019-02-26] MEDS: FLUTICASONE NASAL 120 SPRAYS/16 GM MDI EACHNARE SCH (14:33)
--- NOTE | 2019-02-26 15:41 | GCON ---
[f rep st] CONSULTATION PALLIATIVE MEDICINE CONSULT DATE OF CONSULTATION: 02/26/2019 REFERRING PHYSICIAN: Chrissie Figueredo MD CHIEF COMPLAINT: Dr. Priyanka Figueredo request goals of care and assistance with symptom management. HISTORY OF PRESENT ILLNESS: This is a 59-year-old female, who has severe chronic obstructive pulmonary disease. She was hospitalized February 13 through February 15 with a COPD exacerbation. She was rehospitalized on February 24 because of increased shortness of breath. She states that when she went home on February 15 she was feeling great. Unfortunately, in her assisted living facility, many people were sick, and she believes she caught her current illness from them. She also still smokes and reports increased exposure to smoke as well. When she presented to the hospital on February 24 she was 86% on 4 L/minute of supplemental oxygen. 4 L/minute of oxygen is her baseline, and she has essentially been on this for 5 years; although, it does seem she may have started at just 3 L/minute. While she reports frequent small attacks of shortness of breath, the episodes that have occurred in January are much more severe. She feels like she is suffocating. They last much longer. For her short episodes of shortness of breath, she usually can breathe very slowly and use her fast-acting inhaler and/or a nebulizer to relieve her symptoms. She feels her shortness of breath attacks also contribute to anxiety. Throughout our conversation it is clear that anxiety is her most disabling symptom. Mornings are generally when her shortness of breath is the worst. She often starts her day by using her short-acting inhaler. At its worst, she reports that she is generally on prednisone bursts several times a year. She recalls a burst in May of last year and also a time between May and January. Her anxiety is further worsened by not only her breathing problems, but also the fact that she has chronic pain related to a ventral hernia. She had gone through all of the preoperative requirements for repair of this, and now she will have to go through them all again. She is aware that her poor lung function may be a limiting factor. She is hopeful because she passed the preoperative requirements before, that if her lungs improve, she will be able to do this again. The pain from her ventral hernia limits her ability to eat. She states she has lost 35 pounds in the past year. She also suffers from constipation which she attributes to both her hernia as well as the use of pain medication. She states at home she was using [place] 3 times a day. Unfortunately, she feels this was "too stretched out." She feels that she is having better pain control in the hospital but it is still sub optimal. She has noted that use of pain medicine also makes her breathing feels better. She has been suffering from increased anxiety in the hospital as well. This has been related primarily to her breathing. She states she received a medication that does help this quite a bit. In review of her medication list, this is likely Xanax that she can receive 3 times daily. She also has complaints of a stuffy nose. She believes her nose was broken in the past which contributes to this feeling of stuffiness. When her nose becomes very stuffy, she needs to put her oxygen in her mouth. She also experiences the sensation of fullness that requires her to need to try to dig out substances from her nose. This has led to epistaxis, which oddly enough she has also found relieving. When her nose is full, she puts her oxygen cannula in her mouth. She does not believe she has ever been on a nasal steroid. She experiences dyspnea on exertion. It is evident she has labored breathing with conversation. She also reports orthopnea. She has become essentially wheelchair bound. She can transfer herself from bed to wheelchair independently. Her poor mobility is related to a right hip that she needs to have replaced. This was going to occur after her ventral hernia repair. She is able to bear weight on this right leg. Her stuffy nose occurs on and off, and it seems to occur on more days than not. She also reports a cough that is on and off as well. If her mucus is sticky, and she cannot cough it out, her anxiety and breathing worsen. She also reports dysphagia. It feels as if her throat is swollen and food cannot get past it. It can occur with eating and be unrelated to eating. She recognizes her weight loss is not good. She is hoping she can get food stamps in order to buy Ensure at home. She apparently does not have access to a social work assistant, although I am unclear about these details. PAST MEDICAL HISTORY: 1. Hypertension. 2. COPD. 3. Osteoarthritis. 4. Ventral hernia. 5. Gastroesophageal reflux disease. SOCIAL HISTORY: She states she drinks minimally. Her last drink was on her birthday which was [birth year]. She smokes a half a pack of cigarettes per day and intends on reducing this. She currently wishes to be full code. However, she would not wish to remain ventilator dependent. If she were ventilated, she would want to be ventilated only for as long as it took for her son who lives in [place] to come and say goodbye to her. She also has 2 daughters that she does not know their whereabouts. She also reports that she has a number of "adopted" kids. She believes she has at least 10 children in total but only 3 that she gave to. She currently lives in an assisted living facility. She would trust an employee there/apartment hotel manager named Dot to help her with her finances as well as be her medical power of deputy county attorney, should she be unable to make decisions for herself. FAMILY HISTORY: Her mother of COPD at the age of 51. She was a nonsmoker but was exposed to secondhand smoke. Her father of complications from alcohol abuse at an unknown age. ALLERGIES: Aspirin and feathers. MEDICATIONS: LISTED IN COMPUTER Reviewed. PHYSICAL EXAMINATION: VITAL SIGNS: Shows a BMI of 19.3, a blood pressure of 132/73, a heart rate that ranges from 87-122. She is currently on 6 L/minute, saturating 99%. Her baseline oxygen requirement is 4 L/minute. Respiratory sputum was positive for rush virus on February 24. Per review of Dr. Geronimo's note, her FEV1 is 0.3. GENERAL APPEARANCE: She is alert, oriented x3. She appears chronically ill and frail. She has 4-5 word dyspnea. Her breathing appears labored and heavy with use of accessory muscles. HEENT: Normocephalic/ atraumatic. Pupils are symmetric. She has no icterus. Hearing is intact. She has poor dentition. CARDIOVASCULAR: Distant but regular. She has intact radial pulses bilaterally. There is no lower extremity edema. RESPIRATORY: Very poor air movement. Hardly any breath sounds are audible. No adventitious sounds noted. MUSCULOSKELETAL: She can move all extremities without difficulty. She is overall weak. SIGNIFICANT LABORATORY DATA: Her bicarbonate is 39, and her hemoglobin is 11. She does report having had a colonoscopy and EGD recently. ASSESSMENT AND PLAN: 1. This is a 59-year-old woman with severe chronic obstructive pulmonary disease. She has had 2 exacerbations in January which she remains hopeful that she will recover from and return to her prior level of pulmonary function. I attempted to engage in worse case scenarios; however, she is reluctant to do this at this time. She has a goal of reaching her grandson's high-school graduation in March. 2. Nasal congestion. Would try Flonase to see if that helped with inflammation. I would also add [place] nasal to minimize dryness and humidify her oxygen. Would continue Mucinex as already prescribed to aid in expectoration of sputum which likely has strong contribution from postnasal drip. 3. Anxiety. The patient is open to trying Prozac. We will start and have her primary care physician to titrate upwards. Will start at a dose of 10 mg each morning for 1 week and then increase to 20 mg daily. When antidepressants are used to treat anxiety, they are usually effective at half the antidepressant dose. 4. Pain/dyspnea. She is currently receiving MS Contin mg p.o. twice daily as needed. Depending upon the patient's history of use, she may warrant a short-acting medicine as opposed to a long acting, unless she has known history of diversion. For her dyspnea, she may benefit from just 1-2 mg of morphine sublingual every 4 hours as needed. Dyspnea often responds to lower doses of opioids than are needed for pain. 5. Tobacco abuse. She is currently on a nicotine patch which can be tapered every few days. 6. Dysphagia. She is already on a proton pump inhibitor, Prevacid. If her symptoms of dysphagia persist could also consider adding an H2 yung. Her dysphagia may be related to esophageal spasm which may also respond to hyoscyamine 0.125 mg every 8 hours as needed for esophageal spasm. 7. Weight loss. I encouraged the patient to explore food stamps. [facility] will follow her as an outpatient. I will ask our social work assistant to see her to assist with food stamp application. It is also possible that her weight loss as well as severe anxiety is related to thyroid disorder. The TSH has not been checked recently. This may be warranted. 8. Goals of care. The patient hopes to make it to her grandson's high school graduation. She remains hopeful that her lung function will return to her prior baseline. Based on her bicarbonate level, as well as review of past bicarbonate levels, this may or may not be possible. I explained to the patient that she was currently under palliative care but also explained the distinction with hospice care. Should it become evident that her lungs are not going to improve or that she will not qualify for surgery that may be more a appropriate plan of care for her. [facility] will follow up with her as an outpatient for ongoing goals of care conversation. She seems to have acknowledged that if she were intubated her prognosis would be quite poor and therefore she would simply want to be intubated long enough for her son and grandson to say goodbye to her. Her greatest concern is her anxiety, and she wishes this to be improved. I let her know that the Prozac could take up to 4 weeks to have an effect. Please note that approximately 80 minutes were spent on this consult including review of hospital records and [id number] assessment of the patient. Copy requested to: Dr. Tracy Ramirez, [id number] /[id number]/MODL MARIA DOLORES
--- NOTE | 2019-02-26 15:52 | PDINTPN ---
[employer] Progress Note Assessment/Plan: Assessment: COPD exacerbation secondary to bronchitis/rush virus. Oxygenation at baseline. More short of breath, with lots of mucus, anxiety with coughing. Severe underlying COPD. FEV1 approximately 0.3 L. She has little in the way of pulmonary reserve. She is full cor and would require intubation if she progresses to respiratory failure. She may not have enough reserved to come off the ventilator if intubated. We need to have further discussions with her regarding advanced directives. Palliative care consultation may be indicated. Anxiety: Secondary to 1. Low-dose Xanax for anxiety. Ongoing tobacco abuse: On nicotine patch. Prophylaxis: On enoxaparin and famotidine. Plan: Continue pulmonary therapies; Xanax anxiety/dyspnea. Stop MS Contin. Continue nicotine patch. Continue care in the intensive care unit on step-down status. Check arterial blood gas tomorrow. May be a candidate for CPAP/BiPAP therapy for CO2 retention with dyspnea, but had anxiety with attempts at this in the ambulance EN route to the hospital. Low threshold for addition of antibiotics. 02/26/19 15:59 Subjective: Had increased anxiety and dyspnea this morning, improved this afternoon. Minimal cough with no sputum. Objective: Vital Signs Temp Pulse Resp BP Pulse Ox 37.2 C 122 H 20 132/73 H 99 02/25/19 16:00 02/26/19 11:48 02/26/19 11:48 02/26/19 11:48 02/26/19 11:48 Microbiology 02/25/19 13:45 - Final Sputum, Expectorated Laboratory Results 02/26/19 04:53 02/26/19 04:53 02/25/19 02/26/19 02/27/19 05:59 05:59 05:59 Intake Total 1100 1250 Output Total 390 1550 250 Balance 710 -300 -250 Chest x-ray 02/25: Hyperinflation. Mild bronchitis. Images reviewed by me. Physical Exam - Physical Exam General Appearance: alert, no apparent distress EENT: normal ENT inspection Neck: normal inspection Respiratory: decreased breath sounds Cardiac/Chest: regular rate, rhythm, No edema Abdomen: normal bowel sounds, non-tender Skin: normal color, warm/dry Extremities: normal inspection Neuro/Psych: alert, normal mood/affect, oriented x 3 ICD10 Worksheet Patient Problems: Problems Problem Status Onset Chronic obstructive pulmonary disease with acute exacerbation Acute Respiratory failure Acute Alcohol intoxication Acute Pneumonia Acute
[2019-02-26] MEDS: ACETAMINOPHEN 325 MG TAB PO PRN (18:02)
[2019-02-26] MEDS: MELATONIN 3 MG TAB PO SCH (21:15)
[2019-02-26] MEDS: DOCUSATE SODIUM 100 MG CAP PO SCH (21:15)
[2019-02-26] MEDS: PATCH REMOVAL 1 EA PATCH TD SCH (21:17)
[2019-02-26] MEDS: HYDROCODONE/APAP 5/325 TAB PO PRN (22:59)
[2019-02-27] MEDS: methylPREDNISolone SOD SUCC 40 MG/ML VIAL IVP SCH ×3 (06:29→17:04)
[2019-02-27] MEDS: guaiFENesin 600 MG TAB.ER PO SCH ×4 (06:29→20:13)
[2019-02-27] MEDS: ALPRAZolam 0.25 MG TAB PO PRN ×3 (06:29→21:08)
[2019-02-27] MEDS: IPRATROPIUM/ALBUTEROL 3 ML DEYVIAL IH SCH ×4 (07:19→23:58)
[2019-02-27] MEDS: THIAMINE HCL 100 MG TAB PO SCH (08:20)
[2019-02-27] MEDS: CHOLECALCIFEROL VIT D3 2,000 UNITS TAB/CAP PO SCH (08:20)
[2019-02-27] MEDS: FAMOTIDINE 20 MG TAB PO SCH ×2 (08:20→20:12)
[2019-02-27] MEDS: LISINOPRIL 5 MG TAB PO SCH (08:20)
[2019-02-27] MEDS: ENOXAPARIN 40 MG/0.4 ML SYR SC SCH (08:21)
[2019-02-27] MEDS: NICOTINE 21 MG/24 HR PATCH TD SCH (08:21)
[2019-02-27] MEDS: FLUoxetine 10 MG CAP PO SCH (08:21)
[2019-02-27] MEDS: PRENATAL VIT 1 EACH TAB PO SCH (08:21)
[2019-02-27] MEDS: FLUTICASONE NASAL 120 SPRAYS/16 GM MDI EACHNARE SCH (08:24)
[2019-02-27] MEDS: FLUTICASONE/SALMETER 250/50MCG DISKUS IH SCH ×2 (08:24→23:58)
[2019-02-27] MEDS: NYSTATIN POWDER 15 GM BTL TP SCH ×2 (08:50→21:10)
[2019-02-27] MEDS: ACETAMINOPHEN 325 MG TAB PO PRN (11:37)
[2019-02-27] MEDS: PANTOPRAZOLE SODIUM 40 MG TAB PO SCH (11:37)
--- NOTE | 2019-02-27 12:34 | ASMTCMCOM ---
CM Note CM Note Notes: Reji Tijerina with [facility] stopped by and requested a copy of the palliative order for the patient. A copy was given to Reji. Patient's anxiety contributing to her COPD exacerbation. Patient remains dyspenic, continue inpatient admission. Currently d/c plan is palliative care follow up. Awaiting PT/OT evals to see if patient needs other services as well. CM will follow. Date Signed: 02/27/2019 12:32 PM Electronically Signed By:Briana Gu LCSW
[2019-02-27] MEDS: LANSOPRAZOLE SUSP 3 MG/ML UDSYR (Peds) PO SCH (13:28)
[2019-02-27] MEDS: HYDROCODONE/APAP 5/325 TAB PO PRN ×2 (14:10→21:08)
--- NOTE | 2019-02-27 14:25 | PDINTPN ---
[employer] Progress Note Assessment/Plan: Assessment: COPD exacerbation secondary to bronchitis/coronavirus. Oxygenation at baseline. More short of breath, with lots of mucus, anxiety with coughing. Severe underlying COPD. FEV1 approximately 0.3 L. She has little in the way of pulmonary reserve. She is full cor and would require intubation if she progresses to respiratory failure. She may not have enough reserved to come off the ventilator if intubated. I discussed the very severe nature of her COPD with significant CO2 retention, with a CO2 of 91. Although her CO2 retention may improve, I suspect that her baseline CO2 is probably in the 70-80 range and that she has poor prognosis for long-term survival. We need to have further discussions with her regarding advanced directives. Palliative care consultation may be indicated. Anxiety: Secondary to 1. Low-dose Xanax for anxiety has helped. Ongoing tobacco abuse: On nicotine patch. Prophylaxis: On enoxaparin and famotidine. Plan: Continue pulmonary therapies; continue Xanax anxiety/dyspnea for now, will add low-dose clonazepam and try to wean off the short-acting Xanax. Continue nicotine patch. Continue care in the intensive care unit on step-down status. Check arterial blood gas tomorrow. May be a candidate for CPAP/BiPAP therapy for CO2 retention with dyspnea, but had anxiety with attempts at this in the ambulance EN route to the hospital. Low threshold for addition of antibiotics. 02/27/19 15:33 Subjective: The patient reports that she feels much better, less anxiety. Dyspnea near baseline. Still has cough/congestion Objective: Vital Signs Temp Pulse Resp BP Pulse Ox 36.6 C 112 H 30 H 120/80 94 02/27/19 11:34 02/27/19 11:34 02/27/19 11:34 02/27/19 11:34 02/27/19 11:34 Microbiology 02/25/19 13:45 - Final Sputum, Expectorated Sputum Culture - Final Haemophilus Influenzae Laboratory Results 02/26/19 04:53 02/26/19 04:53 02/26/19 02/27/19 02/28/19 05:59 05:59 05:59 Intake Total 1250 475 Output Total 1550 1325 Balance -300 -850 Laboratory Tests 02/27/19 06:00 pCO2 91 H* pO2 81 H Total CO2 45 H* ABG pH 7.29 L ABG HCO3 43 H ABG O2 Saturation 95 Physical Exam - Physical Exam General Appearance: alert, no apparent distress EENT: normal ENT inspection Neck: normal inspection Respiratory: decreased breath sounds Cardiac/Chest: regular rate, rhythm, No edema Abdomen: non-tender, No soft Skin: normal color, warm/dry Extremities: normal inspection Neuro/Psych: alert, normal mood/affect, oriented x 3 ICD10 Worksheet Patient Problems: Problems Problem Status Onset Chronic obstructive pulmonary disease with acute exacerbation Acute Respiratory failure Acute Alcohol intoxication Acute Pneumonia Acute
--- NOTE | 2019-02-27 16:09 | HOSPPROG ---
Hospitalist Progress Note Assessment/Plan: #Severe COPD with exacerbation: + Coronavirus -CO2 90s -cont steroids, nebs -anxiety contributing. Klonopin added. Can consider oral Roxanol 1-2mg for dyspnea -Palliative care consulted #Acute hypoxemic/hypercarbic resp failure -severe hypercarbia. Need to revisit goals, cor status #Tobacco dependence: counseled on cessation #Severe protein caloric malnutrition: protein shakes #Chronic alcohol abuse: counseled on cessation #Anxiety: Prozac started today, uptitrate outpatient #DVT ppx: Lovenox #Disp: cont inpatient admission; still very dyspenic. Nebs, steroids Subjective: SOB in bed better, but still difficult to walk Objective: Vital Signs Temp Pulse Resp BP Pulse Ox 36.6 C 101 H 19 122/69 H 98 02/27/19 15:50 02/27/19 15:50 02/27/19 15:50 02/27/19 15:50 02/27/19 15:50 Microbiology 02/25/19 13:45 - Final Sputum, Expectorated Sputum Culture - Final Haemophilus Influenzae Laboratory Results 02/26/19 04:53 02/26/19 04:53 02/26/19 02/27/19 02/28/19 05:59 05:59 05:59 Intake Total 1250 475 Output Total 1550 1325 Balance -300 -850 - Time Spent With Patient Time Spent with Patient: greater than 35 minutes Time Spent with Patient: Greater than 35 minutes spent on this patients care, greater than 50% of time spent counseling, educating, and coordinating care regarding the above mentioned plan. - Physical Exam Constitutional: cachectic Eyes: PERRL Ears, Nose, Mouth, Throat: moist mucous membranes Cardiovascular: regular rate and rhythym Respiratory: reduced air movement, expiratory wheeze, rhonchi Gastrointestinal: normoactive bowel sounds Genitourinary: no bladder fullness Skin: warm Musculoskeletal: full muscle strength Neurologic: AAOx3, CN II-XII Intact Psychiatric: anxious ICD10 Worksheet Patient Problems: Problems Problem Status Onset Chronic obstructive pulmonary disease with acute exacerbation Acute Respiratory failure Acute Alcohol intoxication Acute Pneumonia Acute
--- NOTE | 2019-02-27 17:42 | PDPCPN ---
Palliative Care Progress Note Assessment/Plan: Assessment: 59 yo woman with ESCOPD. She has progressed in the acceptance of her poor lung function from yesterday, based on her recognition that surgery on her hernia or hip are no longer options. However, she still feels she can return to her prior living situation and how she felt in December. She feels January was simply a very bad month for her. Plan: 1. Goals of care. We discussed her hypercarbia, including the level. I explained that her body has been adjusting to the rising carbon dioxide level, however there were limits. In addition, this level would be deadly for most people. When I ask her what the other doctors have been telling her about her illness, she says they have told her that they cant get her over this virus and that she can go home. I present a hypothetical to her, what if the doctors told her they could not help her lung function improve any more. She is clear she would then want to go home and at her [facility]. She says she has known other residents who have there. She still believes she will get better in a couple of days. I discuss how recovery from a viral illness can take weeks in a healthy person and might take longer for her. I suggested, she might not become strong enough to return home, but may need to go to a SNF before going home. She would not want this as she will "lose my home" if she is gone more than 30 days. She is uncertain when this 30 day limit starts, if it was at her first hospitalization in January or if it started with her second hospitalization. SW will need to help clarify for the patient. As opposed to going to a SNF, she would want to go home. I explain this would be most likely with hospice and ask her if she understands what hospice is. She initially confused it with home health services. I explain what hospice is, for people at the EOL who have no more treatment options. She verbalized understanding and said if she was going to , she would want to at home. Her primary goal is still to make it until March, when her Grandson graduates. With regards to intubation, she understands that she would likely become dependent on the ventilator and would not want that, but would want a short time on the ventilator so her son and grandson, who live in [place], could come and say goodbye. 2. Anxiety. She feels it is better today, but is worsened by conversations discussing the seriousness of her lung disease as well as her dyspnea. She is able to say, "I realize I'm getting worse and it is taking longer to get better. " 3. Dyspnea. She is unsure if low dose morphine has been tried yet, but would be open to it to improve her endurance. She feels she did manage to get to the commode and back today more easily than yesterday. @ 38 minutes in visit, including review of ON events and direct assessment of the patient. 02/27/19 17:29 Subjective: She feels better today. She feels her appetite is better and that she is less dyspneic when going to the commode. She also feels her anxiety is better. Objective: Vital Signs Temp Pulse Resp BP Pulse Ox 36.6 C 101 H 19 122/69 H 98 02/27/19 15:50 02/27/19 15:50 02/27/19 15:50 02/27/19 15:50 02/27/19 15:50 Microbiology 02/25/19 13:45 - Final Sputum, Expectorated Sputum Culture - Final Haemophilus Influenzae Laboratory Results 02/26/19 04:53 02/26/19 04:53 02/26/19 02/27/19 02/28/19 05:59 05:59 05:59 Intake Total 1250 475 Output Total 1550 1325 Balance -300 -850 - Time Spent With Patient Time Spent With Patient: @38 minutes - Pending Discharge Pending Discharge Within 24 Hours: No Pending Discharge Within 48 Hours: No Physical Exam - Physical Exam General Appearance: mild distress, other (labored breathing and dyspnea with just speaking a few words) EENT: PERRL/EOMI Respiratory: wheezing (faint wheezing heard today, possibly slight increase in air movement) Cardiac/Chest: regular rate, rhythm Extremities: other (no CHIP) ICD10 Worksheet Patient Problems: Problems Problem Status Onset Chronic obstructive pulmonary disease with acute exacerbation Acute Respiratory failure Acute Alcohol intoxication Acute Pneumonia Acute
[2019-02-27] MEDS: DOCUSATE SODIUM 100 MG CAP PO SCH (20:13)
[2019-02-27] MEDS: MELATONIN 3 MG TAB PO SCH (20:13)
[2019-02-27] MEDS: PATCH REMOVAL 1 EA PATCH TD SCH (20:14)
[2019-02-28] MEDS: ZOLPIDEM TARTRATE 5 MG TAB PO PRN (00:12)
[2019-02-28] MEDS: methylPREDNISolone SOD SUCC 40 MG/ML VIAL IVP SCH ×2 (05:29)
[2019-02-28] MEDS: guaiFENesin 600 MG TAB.ER PO SCH ×4 (05:29→20:05)
[2019-02-28] MEDS: IPRATROPIUM/ALBUTEROL 3 ML DEYVIAL IH SCH ×2 (05:40→11:24)
[2019-02-28] MEDS: BENZONATATE 100 MG CAP PO PRN (05:48)
[2019-02-28] MEDS: ALPRAZolam 0.25 MG TAB PO PRN ×3 (05:48→20:57)
--- NOTE | 2019-02-28 09:17 | HOSPPROG ---
Hospitalist Progress Note Assessment/Plan: #Severe COPD with exacerbation: + Coronavirus -CO2 90s -cont steroids, nebs -anxiety contributing. Klonopin added. -Dr. Antonio with address code status, goals with her today -upon further d/s with #Tachycardia: nebs may contributing. Change to Xopenex #Acute hypoxemic/hypercarbic resp failure -severe hypercarbia. Need to revisit goals, cor status #Tobacco dependence: counseled on cessation #Severe protein caloric malnutrition: protein shakes #Chronic alcohol abuse: counseled on cessation #Anxiety: Prozac started today, uptitrate outpatient #DVT ppx: Lovenox #Disp: cont inpatient admission; still very dyspenic. Nebs, steroids #Goals: appreciate [facility] care team. Limited resuscitation: no compressions/ defibrillation. Wants intubation long enough for family to say goodbye Subjective: "I understand how sick I am, just been pushing it out of my mind" Objective: Vital Signs Temp Pulse Resp BP Pulse Ox 36.6 C 103 H 24 H 148/86 H 94 02/28/19 08:00 02/28/19 08:00 02/28/19 08:00 02/28/19 08:00 02/28/19 08:00 Microbiology 02/25/19 13:45 - Final Sputum, Expectorated Sputum Culture - Final Haemophilus Influenzae Laboratory Results 02/26/19 04:53 02/26/19 04:53 02/27/19 02/28/19 03/01/19 05:59 05:59 05:59 Intake Total 475 800 Output Total 1325 200 Balance -850 600 - Time Spent With Patient Time Spent with Patient: greater than 35 minutes Time Spent with Patient: Greater than 35 minutes spent on this patients care, greater than 50% of time spent counseling, educating, and coordinating care regarding the above mentioned plan. - Physical Exam Constitutional: cachectic Eyes: PERRL Ears, Nose, Mouth, Throat: moist mucous membranes Cardiovascular: regular rate and rhythym Respiratory: reduced air movement, expiratory wheeze Gastrointestinal: normoactive bowel sounds Genitourinary: no bladder fullness Skin: warm Musculoskeletal: full muscle strength Neurologic: AAOx3, CN II-XII Intact Psychiatric: flat affect ICD10 Worksheet Patient Problems: Problems Problem Status Onset Chronic obstructive pulmonary disease with acute exacerbation Acute Respiratory failure Acute Alcohol intoxication Acute Pneumonia Acute
[2019-02-28] MEDS ORDERED: morphINE 10 MG/0.5 ML UDSYR PO PRN (09:49)
--- NOTE | 2019-02-28 10:10 | PDPCPN ---
Palliative Care Progress Note Assessment/Plan: Assessment: 1) Advanced COPD - Severe FEV1 impairment, low functional status, wheelchair bound due to orthopedic issues. Suspect patient will have prolonged recovery, and would benefit from close follow up when home. Dr. Figueredo starting low dose liquid morphine today for relief of COPD, and patient experiencing benefit from benzodiazepines. 2) Code Status - discussed with patient in detail. As she expressed to Dr. Ramirez yesterday, Mena would like short term vent support so family could have time to say goodbye, but she would not want this prolonged. She wishes NO CPR, and NO ARTIFICIAL NUTRITION. 3) Atypical Chest Pain - doubt cardiac etiology, Dr. Figueredo aware of this complaint and will follow. 4) Palliative Care Follow Up - Would greatly benefit from close follow up in the outpatient setting. Currently struggling with the severity of her illness, and although she might in fact qualify for hospice services, she is currently not aligned. Will arrange follow up through our office. Discussed with Dr. Figueredo and Dr. Goetz. Plan: 1) PO morphine dosing discussed with Dr. Figueredo. 2) Palliative Care RN will see tomorrow - further provider visits PRN. 3) Our office arranging home Palliative Care follow up. 02/28/19 09:55 02/28/19 10:27 Subjective: Feeling a little better today. Benzodiazepines have been helpful - Mena feels the panic attacks are the worst thing she's experiencing, leaving her feeling like she's dying. Breathing is a bit better, but still short of breath at rest at times (panic synergistic with dyspnea). She describes chest tightness , sternal and radiating to the right shoulder, that has been present off an on for years, 3/10 at its worst, worse in the nights and mornings, generally relieved with nebs. 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 She can perform most of her ADLs, including dressing and showering, and notes shortness of breath while in the shower. Her hope is to return to her assisted living and resume her prior quality of life, but worries that she's dying based on information she's received this hospitalization. We had a long discussion of COPD, and the inherent difficulty with prognosis of this disease. I emphasized defining what quality of life might mean to her, and approaching her disease a day at a time. Mena felt more at ease with this approach. We discussed code status in detail; she felt that short term vent support would be desirable so family would have time to say goodbye (as she had expressed to Dr. Ramirez), but would not want CPR or artificial nutrition. Should she become ill again, she would want to return to the hospital for life-prolonging interventions. She has not discussed her wishes with her son and worries about how he might take this information since he seems to be in denial of the severity of her illness. I suggested that once she returns home, we could have a family meeting/care conference where she could express her wishes to her family - she thinks this could be helpful, but worries about her son's availability as he works reading assistant. She welcomes support from Palliative Care at home. Objective: Looks stated age, A&OX4, anxious on my arrival but more relaxed as visit progressed. Intermittent labored respirations, with occasional cough productive ot thick yellow sputum. HEENT - PERRLA, no mucosal lesions, neck supple, mild termporal wasting CHEST - markedly distant, scattered wheezes and rhonchi, accessory muscle use, no indrawing CVS - RRR, no MRG ABD - bowel sounds present, soft, NT, ND EXTS - no clubbing or cyanosis, trace pedal edema NEURO - no focal findings, CN's II-XII grossly intact DERM - limited exam, no acute lesion noted Vital Signs Temp Pulse Resp BP Pulse Ox 36.6 C 103 H 24 H 148/86 H 94 02/28/19 08:00 02/28/19 08:00 02/28/19 08:00 02/28/19 08:00 02/28/19 08:00 Microbiology 02/25/19 13:45 - Final Sputum, Expectorated Sputum Culture - Final Haemophilus Influenzae Laboratory Results 02/26/19 04:53 02/26/19 04:53 02/27/19 02/28/19 03/01/19 05:59 05:59 05:59 Intake Total 475 800 Output Total 1325 200 Balance -850 600 - Time Spent With Patient Time Spent With Patient: 40 minutes,with greater than 50% of this time spent in patient counseling and coordination of care ICD10 Worksheet Patient Problems: Problems Problem Status Onset Chronic obstructive pulmonary disease with acute exacerbation Acute Respiratory failure Acute Alcohol intoxication Acute Pneumonia Acute
[2019-02-28] MEDS: ENOXAPARIN 40 MG/0.4 ML SYR SC SCH (10:11)
[2019-02-28] MEDS: FLUoxetine 10 MG CAP PO SCH (10:12)
[2019-02-28] MEDS: THIAMINE HCL 100 MG TAB PO SCH (10:13)
[2019-02-28] MEDS: CHOLECALCIFEROL VIT D3 2,000 UNITS TAB/CAP PO SCH (10:13)
[2019-02-28] MEDS: clonazePAM 0.5 MG TAB PO SCH (10:13)
[2019-02-28] MEDS: PRENATAL VIT 1 EACH TAB PO SCH (10:14)
[2019-02-28] MEDS: NICOTINE 21 MG/24 HR PATCH TD SCH (10:14)
[2019-02-28] MEDS: LISINOPRIL 5 MG TAB PO SCH (10:14)
[2019-02-28] MEDS: FAMOTIDINE 20 MG TAB PO SCH ×2 (10:14→20:05)
[2019-02-28] MEDS: FLUTICASONE/SALMETER 250/50MCG DISKUS IH SCH ×2 (10:15→19:28)
[2019-02-28] MEDS: FLUTICASONE NASAL 120 SPRAYS/16 GM MDI EACHNARE SCH (10:15)
[2019-02-28] MEDS: NYSTATIN POWDER 15 GM BTL TP SCH ×2 (10:30→20:06)
[2019-02-28] MEDS ORDERED: clonazePAM 0.5 MG TAB PO ONE (10:53)
--- NOTE | 2019-02-28 10:57 | PDINTPN ---
Digital Marketing Executive Progress Note Assessment/Plan: Assessment: COPD exacerbation secondary to bronchitis/coronavirus. Oxygenation at baseline. Persistent increase in baseline short of breath, with lots of mucus, anxiety with coughing. Severe underlying COPD. FEV1 approximately 0.3 L. She has little in the way of pulmonary reserve. She may not have enough reserved to come off the ventilator if intubated. I discussed the very severe nature of her COPD with significant CO2 retention, with a CO2 of 91. Although her CO2 retention may improve, I suspect that her baseline CO2 is probably in the 70-80 range and that she has poor prognosis for long-term survival. Met with palliative Care this morning, and she agrees to limited resuscitation, with brief intubation if necessary. Anxiety: Secondary to 1. Low-dose Xanax for anxiety has helped. Ongoing tobacco abuse: On nicotine patch. Prophylaxis: On enoxaparin and famotidine. Plan: Continue pulmonary therapies, change steroids to p.o. Continue Xanax anxiety/dyspnea for now, will add an additional dose of low-dose clonazepam and try to wean down/off the short-acting Xanax. Continue nicotine patch. Transfer to med surg. Check BMP tomorrow, probably check arterial blood gas prior to discharge. May be a candidate for CPAP/BiPAP therapy for CO2 retention with dyspnea, but had anxiety with attempts at this in the ambulance EN route to the hospital. Low threshold for addition of antibiotics. 02/28/19 10:55 02/28/19 10:57 Subjective: The patient reports that she continues to have anxiety. Her dyspnea is still not at baseline. She still has some cough with sputum production. Objective: Vital Signs Temp Pulse Resp BP Pulse Ox 36.6 C 112 H 24 H 148/86 H 97 02/28/19 08:00 02/28/19 08:10 02/28/19 08:00 02/28/19 08:00 02/28/19 08:10 Microbiology 02/25/19 13:45 - Final Sputum, Expectorated Sputum Culture - Final Haemophilus Influenzae Laboratory Results 02/26/19 04:53 02/26/19 04:53 02/27/19 02/28/19 03/01/19 05:59 05:59 05:59 Intake Total 475 800 Output Total 1325 200 Balance -850 600 Physical Exam - Physical Exam General Appearance: alert, mild distress EENT: normal ENT inspection Neck: normal inspection Respiratory: decreased breath sounds Cardiac/Chest: regular rate, rhythm, No edema Abdomen: normal bowel sounds, non-tender, soft Skin: normal color, warm/dry Extremities: normal inspection Neuro/Psych: alert, normal mood/affect, oriented x 3, No motor weakness ICD10 Worksheet Patient Problems: Problems Problem Status Onset Chronic obstructive pulmonary disease with acute exacerbation Acute Respiratory failure Acute Alcohol intoxication Acute Pneumonia Acute
[2019-02-28] MEDS: PANTOPRAZOLE SODIUM 40 MG TAB PO SCH (11:40)
[2019-02-28] MEDS: HYDROCODONE/APAP 5/325 TAB PO PRN ×2 (13:41→20:57)
[2019-02-28] MEDS: LEVALBUTEROL 0.63 MG/3 ML DEYVIAL IH SCH ×2 (16:11→22:00)
--- NOTE | 2019-02-28 16:48 | CPEKG ---
Test Reason : OPEN Blood Pressure : / mmHG Vent. Rate : 142 BPM Atrial Rate : 142 BPM P-R Int : 088 ms QRS Dur : 070 ms QT Int : 272 ms P-R-T Axes : 000 073 118 degrees QTc Int : 418 ms Atrial fibrillation Multiple ventricular premature complexes Anterior infarct, old Confirmed by Surinder Hua ([id number]) on 02/28/2019 4:48:18 PM Referred By: Bernard Shaikh Confirmed By:Surinder Hua
[2019-02-28] MEDS: ACETAMINOPHEN 325 MG TAB PO PRN (17:06)
[2019-02-28] MEDS: predniSONE 20 MG TAB PO SCH (17:07)
[2019-02-28] MEDS: MELATONIN 3 MG TAB PO SCH (20:05)
[2019-02-28] MEDS: DOCUSATE SODIUM 100 MG CAP PO SCH (20:05)
[2019-02-28] MEDS: PATCH REMOVAL 1 EA PATCH TD SCH (20:06)
[2019-02-28] MEDS ORDERED: DILTIAZEM 25 MG/5 ML VIAL IVP ONE (21:15)
[2019-02-28] MEDS ORDERED: METOPROLOL TARTRATE 25 MG TAB PO SCH (21:15)
[2019-03-01] MEDS: LEVALBUTEROL 0.63 MG/3 ML DEYVIAL IH SCH ×4 (05:20→22:13)
[2019-03-01] MEDS: guaiFENesin 600 MG TAB.ER PO SCH ×4 (06:04→21:21)
[2019-03-01] MEDS: ALPRAZolam 0.25 MG TAB PO PRN ×3 (08:23→23:24)
[2019-03-01] MEDS: PRENATAL VIT 1 EACH TAB PO SCH (08:24)
[2019-03-01] MEDS: clonazePAM 0.5 MG TAB PO SCH (08:24)
[2019-03-01] MEDS: FAMOTIDINE 20 MG TAB PO SCH ×2 (08:24→21:21)
[2019-03-01] MEDS: FLUoxetine 10 MG CAP PO SCH (08:25)
[2019-03-01] MEDS: NICOTINE 21 MG/24 HR PATCH TD SCH (08:25)
[2019-03-01] MEDS: THIAMINE HCL 100 MG TAB PO SCH (08:25)
[2019-03-01] MEDS: ENOXAPARIN 40 MG/0.4 ML SYR SC SCH (08:25)
[2019-03-01] MEDS: CHOLECALCIFEROL VIT D3 2,000 UNITS TAB/CAP PO SCH (08:25)
[2019-03-01] MEDS: predniSONE 20 MG TAB PO SCH ×2 (08:25→19:37)
[2019-03-01] MEDS: HYDROCODONE/APAP 5/325 TAB PO PRN ×3 (08:29→23:24)
[2019-03-01] MEDS: LISINOPRIL 5 MG TAB PO SCH (08:36)
[2019-03-01] MEDS: FLUTICASONE/SALMETER 250/50MCG DISKUS IH SCH ×2 (11:19→20:22)
--- NOTE | 2019-03-01 11:33 | PDINTPN ---
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 Oxygenation at baseline. Persistent increase in baseline short of breath, with mucus, anxiety with coughing, but this is improved today. Severe underlying COPD. FEV1 approximately 0.3 L. She has little in the way of pulmonary reserve. She may not have enough reserved to come off the ventilator if intubated. I discussed the very severe nature of her COPD with significant CO2 retention, with a CO2 of 91. Although her CO2 retention may improve, I suspect that her baseline CO2 is probably in the 70-80 range and that she has poor prognosis for long-term survival. Met with palliative Care this morning, and she agrees to limited resuscitation, with brief intubation if necessary. Her bicarbonate is up today, suggesting that her CO2 remains quite elevated. Anxiety: Secondary to 1. Low-dose clonazepam and Xanax for anxiety has helped. Ongoing tobacco abuse: On nicotine patch. Prophylaxis: On enoxaparin and famotidine. Plan: Continue pulmonary therapies, p.o. steroids. Continue clonazepam as well as p.r.n. Xanax for anxiety/dyspnea Continue nicotine patch. Transfer to med surg. Check BMP tomorrow, probably check arterial blood gas prior to discharge. Could be a candidate for CPAP/BiPAP therapy for CO2 retention with dyspnea, but had anxiety with attempts at this in the ambulance EN route to the hospital. Low threshold for addition of antibiotics. Will check arterial blood gas in 1-2 days 03/01/19 11:31 Subjective: Feels better, less anxiety. Breathing is less labored. Objective: Vital Signs Temp Pulse Resp BP Pulse Ox 36.1 C 85 18 101/58 L 93 03/01/19 08:00 03/01/19 08:00 03/01/19 08:00 03/01/19 08:36 03/01/19 08:00 Laboratory Results 02/26/19 04:53 02/28/19 15:45 02/28/19 03/01/19 03/02/19 05:59 05:59 05:59 Intake Total 800 1500 240 Output Total 200 150 Balance 600 1500 90 Physical Exam - Physical Exam General Appearance: alert, no apparent distress EENT: normal ENT inspection Neck: normal inspection Respiratory: decreased breath sounds Cardiac/Chest: regular rate, rhythm, No edema Abdomen: normal bowel sounds, non-tender, soft Skin: normal color, warm/dry Extremities: normal inspection Neuro/Psych: alert, normal mood/affect, oriented x 3 ICD10 Worksheet Patient Problems: Problems Problem Status Onset Chronic obstructive pulmonary disease with acute exacerbation Acute Respiratory failure Acute Alcohol intoxication Acute Pneumonia Acute
[2019-03-01] MEDS ORDERED: POLYETHYLENE GLYCOL 3350 17 GM PKT PO PRN (11:55)
[2019-03-01] MEDS ORDERED: LACTULOSE 20 GM/30 ML UDCUP PO PRN (11:55)
[2019-03-01] MEDS ORDERED: MAGNESIUM HYDROXIDE 30 ML UDCUP PO PRN (11:55)
[2019-03-01] MEDS ORDERED: BISACODYL 10 MG SUPP PR PRN (11:55)
[2019-03-01] MEDS: ACETAMINOPHEN 325 MG TAB PO PRN ×2 (11:59→19:43)
[2019-03-01] MEDS: PANTOPRAZOLE SODIUM 40 MG TAB PO SCH (12:00)
[2019-03-01] MEDS: FLUTICASONE NASAL 120 SPRAYS/16 GM MDI EACHNARE SCH (12:00)
[2019-03-01] MEDS: NYSTATIN POWDER 15 GM BTL TP SCH ×2 (12:03→23:27)
[2019-03-01] MEDS: METOPROLOL TARTRATE 25 MG TAB PO SCH ×2 (12:06→21:21)
[2019-03-01] MEDS: SENNOSIDES/DOCUSATE SODIUM TAB PO SCH ×2 (15:33→23:25)
[2019-03-01] MEDS: BENZONATATE 100 MG CAP PO PRN ×2 (15:33→23:24)
--- NOTE | 2019-03-01 17:45 | HOSPPROG ---
Hospitalist Progress Note Assessment/Plan: #Severe COPD with exacerbation: + Coronavirus -CO2 90s -cont steroids, nebs -anxiety contributing. Klonopin added. -may be candidate for CPAP/BiPap with hypercarbia -BMP tomorrow, ABG prior to DC #Sinus tachycardia: 150s last night. Dosed dilt with improvement. Added low- dose metoprolol #Acute hypoxemic/hypercarbic resp failure -severe hypercarbia. Need to revisit goals, cor status #Tobacco dependence: counseled on cessation #Severe protein caloric malnutrition: protein shakes #Chronic alcohol abuse: counseled on cessation #Anxiety: Prozac started today, uptitrate outpatient #DVT ppx: Lovenox #Disp: cont inpatient admission; still very dyspenic. Nebs, steroids #Goals: appreciate [facility] care team. Limited resuscitation: no compressions/ defibrillation. Wants intubation long enough for family to say goodbye Subjective: less anxious today Objective: Vital Signs Temp Pulse Resp BP Pulse Ox 36.3 C 80 20 134/75 H 96 03/01/19 15:29 03/01/19 17:16 03/01/19 17:16 03/01/19 12:06 03/01/19 17:16 Laboratory Results 02/26/19 04:53 02/28/19 15:45 02/28/19 03/01/19 03/02/19 05:59 05:59 05:59 Intake Total 800 1500 850 Output Total 200 450 Balance 600 1500 400 - Time Spent With Patient Time Spent with Patient: greater than 35 minutes Time Spent with Patient: Greater than 35 minutes spent on this patients care, greater than 50% of time spent counseling, educating, and coordinating care regarding the above mentioned plan. - Physical Exam Constitutional: cachectic Eyes: PERRL Ears, Nose, Mouth, Throat: moist mucous membranes Cardiovascular: regular rate and rhythym Respiratory: reduced air movement Gastrointestinal: normoactive bowel sounds Genitourinary: no bladder fullness Skin: warm Musculoskeletal: full muscle strength Neurologic: AAOx3, CN II-XII Intact Psychiatric: anxious, flat affect ICD10 Worksheet Patient Problems: Problems Problem Status Onset Chronic obstructive pulmonary disease with acute exacerbation Acute Respiratory failure Acute Alcohol intoxication Acute Pneumonia Acute
[2019-03-01] MEDS ORDERED: SENNOSIDES/DOCUSATE SODIUM TAB PO SCH (21:00)
[2019-03-01] MEDS: MELATONIN 3 MG TAB PO SCH (21:21)
[2019-03-01] MEDS: DOCUSATE SODIUM 100 MG CAP PO SCH (21:21)
[2019-03-01] MEDS: PATCH REMOVAL 1 EA PATCH TD SCH (21:22)
[2019-03-01] MEDS: ZOLPIDEM TARTRATE 5 MG TAB PO PRN (21:24)
[2019-03-02] MEDS: LEVALBUTEROL 0.63 MG/3 ML DEYVIAL IH SCH ×4 (05:24→23:34)
[2019-03-02] MEDS: guaiFENesin 600 MG TAB.ER PO SCH ×4 (05:32→20:22)
[2019-03-02] MEDS: ACETAMINOPHEN 325 MG TAB PO PRN ×3 (05:35→18:06)
[2019-03-02] MEDS: HYDROCODONE/APAP 5/325 TAB PO PRN ×2 (08:56→20:22)
[2019-03-02] MEDS: ALPRAZolam 0.25 MG TAB PO PRN ×2 (08:57→16:09)
[2019-03-02] MEDS: PRENATAL VIT 1 EACH TAB PO SCH (08:58)
[2019-03-02] MEDS: SENNOSIDES/DOCUSATE SODIUM TAB PO SCH ×2 (08:58→21:51)
[2019-03-02] MEDS: CHOLECALCIFEROL VIT D3 2,000 UNITS TAB/CAP PO SCH (08:58)
[2019-03-02] MEDS: THIAMINE HCL 100 MG TAB PO SCH (08:58)
[2019-03-02] MEDS: BENZONATATE 100 MG CAP PO PRN (08:59)
[2019-03-02] MEDS: METOPROLOL TARTRATE 25 MG TAB PO SCH ×2 (08:59→20:23)
[2019-03-02] MEDS: FAMOTIDINE 20 MG TAB PO SCH ×2 (08:59→20:21)
[2019-03-02] MEDS: clonazePAM 0.5 MG TAB PO SCH (08:59)
[2019-03-02] MEDS: predniSONE 20 MG TAB PO SCH ×2 (08:59→18:06)
[2019-03-02] MEDS: ENOXAPARIN 40 MG/0.4 ML SYR SC SCH (09:00)
[2019-03-02] MEDS: NICOTINE 21 MG/24 HR PATCH TD SCH (09:00)
[2019-03-02] MEDS: FLUoxetine 10 MG CAP PO SCH (09:00)
[2019-03-02] MEDS: FLUTICASONE/SALMETER 250/50MCG DISKUS IH SCH ×2 (09:03→19:53)
[2019-03-02] MEDS: FLUTICASONE NASAL 120 SPRAYS/16 GM MDI EACHNARE SCH (09:05)
[2019-03-02] MEDS: NYSTATIN POWDER 15 GM BTL TP SCH ×2 (09:07→21:50)
[2019-03-02] MEDS: LISINOPRIL 5 MG TAB PO SCH (10:27)
--- NOTE | 2019-03-02 10:34 | HOSPPROG ---
Hospitalist Progress Note Assessment/Plan: #Severe COPD with exacerbation: + Coronavirus -CO2 90s -cont steroids, nebs -anxiety contributing. Klonopin added. -morphine was not effective for dyspnea. She would rather use home [facility]. -couple days in hospital for current therapies, will need long pred taper #Tachycardia: nebs contributed. Change to Xopenex. Metoprolol #Acute hypoxemic/hypercarbic resp failure -severe hypercarbia #Metabolic alkalosis #Tobacco dependence: counseled on cessation #Severe protein caloric malnutrition: protein shakes #Chronic alcohol abuse: counseled on cessation #Anxiety: Prozac started here, uptitrate outpatient #DVT ppx: Lovenox #Disp: cont inpatient admission; still very dyspneic. Nebs, steroids #Goals: appreciate [facility] care team. Limited resuscitation: no compressions/ defibrillation. Wants intubation long enough for family to say goodbye Subjective: feels stronger. Sitting up in chair. Wants to go home, but scared will have to come back Objective: Vital Signs Temp Pulse Resp BP Pulse Ox 36.6 C 75 22 H 142/86 H 97 03/02/19 08:00 03/02/19 08:00 03/02/19 08:00 03/02/19 10:27 03/02/19 08:00 Laboratory Results 02/26/19 04:53 03/02/19 05:36 03/01/19 03/02/19 03/03/19 05:59 05:59 05:59 Intake Total 1500 1450 Output Total 450 Balance 1500 1000 - Time Spent With Patient Time Spent with Patient: greater than 35 minutes Time Spent with Patient: Greater than 35 minutes spent on this patients care, greater than 50% of time spent counseling, educating, and coordinating care regarding the above mentioned plan. - Physical Exam Constitutional: cachectic Eyes: PERRL Ears, Nose, Mouth, Throat: moist mucous membranes Cardiovascular: regular rate and rhythym Respiratory: reduced air movement (poor airmovement throughout), No rhonchi Skin: warm Musculoskeletal: full muscle strength Neurologic: CN II-XII Intact Psychiatric: anxious ICD10 Worksheet Patient Problems: Problems Problem Status Onset Chronic obstructive pulmonary disease with acute exacerbation Acute Respiratory failure Acute Alcohol intoxication Acute Pneumonia Acute
--- NOTE | 2019-03-02 11:02 | ASMTCMCOM ---
CM Note CM Note Notes: [facility] being followed by [facility]. I faxed an RX for a hospital bed to [facility] RN Allison. I also called to let her know that patient will likely d/c in 1-2 days so that she can arrange for a [facility] Potable Water Treatment Operator to see patient at home. I spoke w [facility] to let them know of patient's impending discharge as well. They recommend we call her son or a taxi to transport her home. Case Management will follow. Date Signed: 03/02/2019 11:01 AM Electronically Signed By:Liliana Friedman RN
[2019-03-02] MEDS: PANTOPRAZOLE SODIUM 40 MG TAB PO SCH (11:27)
--- NOTE | 2019-03-02 15:59 | PDINTPN ---
Template Clerk Progress Note Assessment/Plan: Assessment: COPD exacerbation secondary to bronchitis/coronavirus. Oxygenation at baseline. Persistent increase in baseline short of breath, with mucus, anxiety with coughing, but this is improved the last 2 days. Severe underlying COPD. FEV1 approximately 0.3 L. She has little in the way of pulmonary reserve. She may not have enough reserved to come off the ventilator if intubated. I discussed the very severe nature of her COPD with significant CO2 retention, with a CO2 of 91. Although her CO2 retention may improve, I suspect that her baseline CO2 is probably in the 70-80 range and that she has poor prognosis for long-term survival. Met with palliative Care this morning, and she agrees to limited resuscitation, with brief intubation if necessary. Her bicarbonate is up again today, suggesting that her CO2 remains quite elevated. Anxiety: Secondary to 1. Low-dose clonazepam and Xanax for anxiety has helped. Ongoing tobacco abuse: On nicotine patch. Prophylaxis: On enoxaparin and famotidine. Plan: Continue pulmonary therapies, p.o. steroids. Continue clonazepam as well as p.r.n. Xanax for anxiety/dyspnea Continue nicotine patch. Check arterial blood tomorrow. Could be a candidate for CPAP/BiPAP therapy for CO2 retention with dyspnea, but had anxiety with attempts at this in the ambulance EN route to the hospital. 03/02/19 15:58 Subjective: Feels a bit better. Anxiety and dyspnea perhaps slightly improved. Objective: Vital Signs Temp Pulse Resp BP Pulse Ox 36.6 C 68 20 138/93 H 98 03/02/19 08:00 03/02/19 11:31 03/02/19 11:31 03/02/19 11:31 03/02/19 11:31 Laboratory Results 02/26/19 04:53 03/02/19 05:36 03/01/19 03/02/19 03/03/19 05:59 05:59 05:59 Intake Total 1500 1450 Output Total 450 150 Balance 1500 1000 -150 Physical Exam - Physical Exam General Appearance: alert, no apparent distress EENT: normal ENT inspection Neck: normal inspection Respiratory: decreased breath sounds Cardiac/Chest: regular rate, rhythm, No edema Abdomen: normal bowel sounds, non-tender Skin: normal color, warm/dry Extremities: normal range of motion Neuro/Psych: alert, normal mood/affect, oriented x 3 ICD10 Worksheet Patient Problems: Problems Problem Status Onset Chronic obstructive pulmonary disease with acute exacerbation Acute Respiratory failure Acute Alcohol intoxication Acute Pneumonia Acute
[2019-03-02] MEDS: ZOLPIDEM TARTRATE 5 MG TAB PO PRN (20:22)
[2019-03-02] MEDS: MELATONIN 3 MG TAB PO SCH (20:22)
[2019-03-02] MEDS: DOCUSATE SODIUM 100 MG CAP PO SCH (20:22)
[2019-03-02] MEDS: PATCH REMOVAL 1 EA PATCH TD SCH (21:50)
[2019-03-03] MEDS: HYDROCODONE/APAP 5/325 TAB PO PRN ×2 (04:34→12:26)
[2019-03-03] MEDS: ALPRAZolam 0.25 MG TAB PO PRN ×2 (04:35→14:32)
[2019-03-03] MEDS: guaiFENesin 600 MG TAB.ER PO SCH ×2 (04:35→12:26)
[2019-03-03] MEDS: BENZONATATE 100 MG CAP PO PRN ×2 (04:35→12:27)
[2019-03-03] MEDS: LEVALBUTEROL 0.63 MG/3 ML DEYVIAL IH SCH ×2 (05:39→11:42)
[2019-03-03 07:26] VITALS: BP 132/79
[2019-03-03] MEDS: SENNOSIDES/DOCUSATE SODIUM TAB PO SCH (09:04)
[2019-03-03] MEDS: FAMOTIDINE 20 MG TAB PO SCH (09:05)
[2019-03-03] MEDS: FLUoxetine 10 MG CAP PO SCH (09:05)
[2019-03-03] MEDS: clonazePAM 0.5 MG TAB PO SCH (09:05)
[2019-03-03] MEDS: METOPROLOL TARTRATE 25 MG TAB PO SCH (09:05)
[2019-03-03] MEDS: predniSONE 20 MG TAB PO SCH (09:06)
[2019-03-03] MEDS: THIAMINE HCL 100 MG TAB PO SCH (09:06)
[2019-03-03] MEDS: PRENATAL VIT 1 EACH TAB PO SCH (09:06)
[2019-03-03] MEDS: CHOLECALCIFEROL VIT D3 2,000 UNITS TAB/CAP PO SCH (09:06)
[2019-03-03] MEDS: NYSTATIN POWDER 15 GM BTL TP SCH (09:07)
[2019-03-03] MEDS: NICOTINE 21 MG/24 HR PATCH TD SCH (09:07)
[2019-03-03] MEDS: ENOXAPARIN 40 MG/0.4 ML SYR SC SCH (09:07)
[2019-03-03] MEDS: FLUTICASONE/SALMETER 250/50MCG DISKUS IH SCH (09:25)
[2019-03-03] MEDS: ACETAMINOPHEN 325 MG TAB PO PRN (09:25)
[2019-03-03] MEDS: FLUTICASONE NASAL 120 SPRAYS/16 GM MDI EACHNARE SCH (09:58)
--- NOTE | 2019-03-03 11:04 | PDIAF ---
- Diagnosis Diagnosis: End stage COPD with exacerbation Code Status: Limited Resuscitation - Medication Management Discharge Medications: electronically signed and located in the Home Medication List. - Orders Services needed: Home Care, Registered Nurse, Physical Therapy, Occupational Therapy Home Care Face to Face: I certify that this patient was under my care and that I had the required oabi-sa-iaty encounter meeting the encounter requirements on the discharge day. My findings support the fact that the patient is homebound as defined in Home Care Face to Face Continued: CMS Chapter 7 Medicare Benefits Manual 30.1.1 , The condition of the patient is such that there exists a normal inability to leave home and consequently, leaving home would require a considerable and taxing effort. Isolation Type: Droplet Isolation Diet Recommendation: no restrictions on diet Additional Instructions: Take prednisone 40mg daily, reduce to 20mg in 7 days and continue that dosage until further instructions from Dr. Tijerina (pulmonary) Take Clonazepam once daily, okay to take Xanax up to one additional dose daily as needed - follow-up with Dr. Tijerina for prescription refills. Outpatient palliative care Recommend smoking and alcohol cessation - Follow Up Care Current Providers and Referrals: Patient,NotPresent [Unknown] - As per Instructions
--- NOTE | 2019-03-03 11:56 | PDINTPN ---
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 Oxygenation at baseline. Persistent increase in baseline short of breath, with mucus, anxiety with coughing, but this is improved the last 2 days. Severe underlying COPD. FEV1 approximately 0.3 L. She has little in the way of pulmonary reserve. She may not have enough reserved to come off the ventilator if intubated. I discussed the very severe nature of her COPD with significant CO2 retention, with a CO2 of 91. Repeat check this morning shows a CO2 of 80. Although her CO2 retention may improve, I suspect that her baseline CO2 is probably in the 70-80 range and that she has poor prognosis for long-term survival. Met with palliative Care this morning, and she agrees to limited resuscitation, with brief intubation if necessary. Her bicarbonate is up again today, suggesting that her CO2 remains quite elevated. Anxiety: Secondary to 1. Low-dose clonazepam and Xanax for anxiety has helped. Ongoing tobacco abuse: On nicotine patch. Prophylaxis: On enoxaparin and famotidine. Plan: Discharged home today. Probably can discharge home today on a slow prednisone taper (40 mg daily for a week, then 20 mg daily) as well as daily scheduled clonazepam and once daily p.r.n. Xanax. Continue nicotine patch. Continue other outpatient inhalers. Follow up with Dr. Tijerina next week or the week after. 03/03/19 11:54 Subjective: Continues to have some mild anxiety regarding her breathing. Dyspnea is stable. Chronic hip pain is well controlled with oral medications. Objective: Vital Signs Temp Pulse Resp BP Pulse Ox 37 C 93 20 132/79 H 93 03/03/19 07:25 03/03/19 09:26 03/03/19 09:26 03/03/19 07:25 03/03/19 09:26 Laboratory Results 02/26/19 04:53 03/02/19 05:36 03/02/19 03/03/19 03/04/19 05:59 05:59 05:59 Intake Total 1450 2100 Output Total 450 450 Balance 1000 1650 Laboratory Tests 03/03/19 09:20 pCO2 80 H* pO2 122 H Total CO2 52 H* ABG pH 7.41 ABG HCO3 49 H Total O2 Concentration 4.0 Physical Exam - Physical Exam General Appearance: alert, no apparent distress EENT: normal ENT inspection Neck: normal inspection Respiratory: wheezing (Left greater than right) Cardiac/Chest: regular rate, rhythm, No edema Abdomen: normal bowel sounds, non-tender Skin: normal color, warm/dry Extremities: normal inspection Neuro/Psych: alert, normal mood/affect, oriented x 3 ICD10 Worksheet Patient Problems: Problems Problem Status Onset Chronic obstructive pulmonary disease with acute exacerbation Acute Respiratory failure Acute Alcohol intoxication Acute Pneumonia Acute
--- NOTE | 2019-03-03 12:05 | ASMTLACE ---
MAIDA Length of stay for Answers: 7-13 days current admission Acuity / Level of Answers: Yes Care: Did the patient have an inpatient admission? Comorbidities - select Answers: Chronic pulmonary disease all that apply # of Emergency department Answers: 1-2 visits in the last 6 months Social determinants Answers: History of substance abuse (ETOH, street drugs, prescription drugs, etc.) Mental health diagnosis (anxiety, depression, pers onality disorders, etc.) Score: 17 Date Signed: 03/03/2019 12:05 PM Electronically Signed By:Lashell Hawkins RN
[2019-03-03] MEDS: PANTOPRAZOLE SODIUM 40 MG TAB PO SCH (12:26)
--- NOTE | 2019-03-03 13:08 | ASMTDCNOTE ---
Case Management Discharge Discharge Order Complete? Answers: Yes Patient to Obtain Answers: Other Notes: [facility] Medications Transportation Arranged Answers: [facility] Faxed Final Orders Answers: Yes Notes: [facility], [facility], [facility] Agency/Facility Transfer Answers: Yes Notes: [facility], [facility], [facility] Report Printed & Faxed to Palliative Receiving Agency Discharge Comments Notes: 03/03/2019 Case Management Note Met w/pt. IM signed. Pt provided Medicaid #: [id number]. Arranged for [facility] w[facility]c with oxygen transport. supervisor net making at 14:30. Faxed final orders to [facility]. Notified by phone of d/c. Arranged for [facility] home care. Faxed final orders. Faxed final orders to [facility]. Left VM for son. Case Management d/c poc: return to [facility] [place] with [facility] and the addition of [facility]. Date Signed: 03/03/2019 01:07 PM Electronically Signed By:Lashell Hawkins RN
--- NOTE | 2019-03-03 16:48 | GDS ---
[f rep st] DISCHARGE SUMMARY DISCHARGE DIAGNOSES: 1. End-stage chronic obstructive pulmonary disease with exacerbation. 2. Viral bronchitis with coronavirus. 3. Anxiety. 4. Ongoing tobacco dependence. 5. Acute respiratory failure. 6. 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 7. Alcohol abuse. HISTORY: The patient is a 59-year-old female with severe COPD. Her FEV1 is 0.3 L. She has little in the way of pulmonary reserve. She has severe baseline CO2 retention with a CO2 of 91. She was admitted to the ICU. Exacerbation is likely due to coronavirus found on her respiratory PCR. She had a prolonged hospital course due to her tenuous status. Pulmonary is recommending a very slow steroid taper. She will follow up closely with Dr. Tijerina. Given the end-stage nature of her disease, Palliative Care Medicine saw her here in the hospital. [facility] will continue to follow up post discharge. She did change her core status. Severe anxiety is a large issue for her. Pulmonary Medicine recommended benzodiazepines chronically. She was started on Klonopin 0.5 mg p.o. daily. She can also take a 2nd dose in the afternoon of Xanax as needed. Dr. Goetz requested that I give her a 30 day supply of Klonopin as well as 10 tablets of Xanax. Any further refills can be through Dr. Tijerina. She was also started on Prozac low dose, by Palliative Care. She is back to her baseline oxygen requirement of 4 L. DISCHARGE MEDICATIONS: Please see computerized record for full detailed list. New medications: 1. Prednisone 40 mg p.o. daily to be reduced to 20 mg p.o. daily in 7 days. Continue that dose until further instructions by Dr. Tijerina. 2. Clonazepam 0.5 mg p.o. daily. 3. Xanax 0.25 mg p.o. daily as needed. 4. Prozac 10 mg p.o. daily. 5. Flonase 1 spray each naris daily. 6. Metoprolol 12.5 mg p.o. twice daily. ADDITIONAL DISCHARGE INSTRUCTIONS: 1. Home health, PT, OT, VNS. She will otherwise return to [facility] where she [facility]. They administer all medications which increases my comfort level regarding discharging her on benzodiazepines as this will be monitored. 2. Outpatient palliative care. 3. Recommend smoking and alcohol cessation. Greater than 30 minutes' time spent arranging this discharge. Patient seen and examined by me on day of discharge. /[id number]/MODL MTDD
--- NOTE | 2019-03-04 14:37 | ASDISCHSUM ---
Discharge Information Plan Status:Home with Home Health Medically Cleared to Leave:03/03/2019 Discharge Date:03/03/2019 03:18 PM CM D/C Disposition:Home Health Service ADT D/C Disposition:Home Health Service Projected Discharge Date:03/02/2019 11:00 AM Transportation at D/C: Discharge Delay Reason: Follow-Up Date:03/02/2019 11:00 AM Discharge Slot: Final Diagnosis: Placement Information Referral Type:Palliative Care Referral ID:[id number] Provider Name:[facility] Address 1:[address] [place] Address 2: City:[place] Selection Factors: State:[place] Referral Type:*Home Health Care Services Referral ID:[id number] Provider Name:[facility] Address 1:[address] Address 2: City:[place] Selection Factors: State:[place] Referral Type:Assisted Living Residence Referral ID:[id number] Provider Name:[facility] Address 1:[address] Address 2: City:[place] Selection Factors: State:[place] Patient Contact Information Contact Name:LUCINA Relationship:Son Address:[address] Work Phone: City:[place] Phone: State/Zip Code:[place] [address] Email: Financial Information Financial Class:Medicare Advantage Plans Primary Plan Desc:RIVASA GUSTABO PPO MEDICARE Primary Plan Number:[id number] Secondary Plan Desc:MED[place] Secondary Plan Number:[id number] Assessment Information [facility] Initial CM Assessment Living Arrangements What is your living Answers: Alone arrangement? Who do you live with? Type Of Residence What kind of residence do Answers: Apartment you live in? Discharge Plan Comments Coordination Status Comments Notes: Patient is a 59yo single female who was admitted for acute hypoxic respiratory failure, COPD exacerbation, rush virus infection, abdominal hernia,chronic knee ankle and toe pains,HTN, tobacco abuse and chronic ETOH use. Patient is full core currently but wants it changed if she will not survive a resusitation attempt per Dr. Shaikh. Cardiac rehab consult ordered. D/C plan TBD. CM will follow Date Signed: 02/25/2019 04:52 PM Electronically Signed By:Briana Gu LCSW LACE LACThomas Length of stay for Answers: 7-13 days current admission Acuity / Level of Answers: Yes Care: Did the patient have an inpatient admission? Comorbidities - select Answers: Chronic pulmonary disease all that apply # of Emergency department Answers: 1-2 visits in the last 6 months Social determinants Answers: History of substance abuse (ETOH, street drugs, prescription drugs, etc.) Mental health diagnosis (anxiety, depression, pers onality disorders, etc.) Score: 17 Date Signed: 03/03/2019 12:05 PM Electronically Signed By:Lashell Hawkins RN [facility] CM Progress Note CM Note CM Note Notes: Reji Tijerina with [facility] stopped by and requested a copy of the palliative order for the patient. A copy was given to Reji. Patient's anxiety contributing to her COPD exacerbation. Patient remains dyspenic, continue inpatient admission. Currently d/c plan is palliative care follow up. Awaiting PT/OT evals to see if patient needs other services as well. CM will follow. Date Signed: 02/27/2019 12:32 PM Electronically Signed By:Briana Gu LCSW [facility] CM Progress Note CM Note CM Note Notes: Patient is eager to go home to the [facility] [place]. She is being followed by [facility]. I faxed an RX for a hospital bed to [facility] JOSHUA [facility]. I also called to let her know that patient will likely d/c in 1-2 days so that she can arrange for a [facility] Sailing Officer to see patient at home. I spoke w [facility] to let them know of patient's impending discharge as well. They recommend we call her son or a taxi to transport her home. Case Management will follow. Date Signed: 03/02/2019 11:01 AM Electronically Signed By:Liliana Friedman RN Case Management Discharge Plan Note Case Management Discharge Discharge Order Complete? Answers: Yes Patient to Obtain Answers: Other [facility] Arranged Answers: [facility] W[facility]C Faxed Final Orders Answers: Yes Notes: [facility] Palliative Agency/Facility Transfer Answers: Yes Notes: [facility] Report Printed & Faxed to Palliative Receiving Agency Discharge Comments Notes: 03/03/2019 Case Management Note Met w/pt. IM signed. Pt provided Medicaid #: [id number]. Arranged for [facility] with oxygen transport. supervisor patching at 14:30. Faxed final orders to [facility]. Notified by phone of d/c. Arranged for [facility] home care. Faxed final orders. Faxed final orders to [facility]. Left VM for son. Case Management d/c poc: return to [facility] [place] with [facility] and the addition of [facility]. Date Signed: 03/03/2019 01:07 PM Electronically Signed By:Lashell Hawkins RN Intervention Information Intervention Type:*IM-Signed Date of Service:03/03/2019 01:04 PM Patient Type:Inpatient Staff Member:JOSHUA Hawkins, Lashell Hours: Discipline: Severity: Comment:
== END 2019-03-03 15:18 | disposition home health service (06) | DRG 190 ==
LOC: EDUNIT# → F2N 10:17
PROVIDERS: ADMIT Internal Medicine; ATTEND Internal Medicine
DX: J44.9 Chronic obstructive pulmonary disease, unspecified (principal); J96.20 Acute and chronic respiratory failure, unspecified whether with hypoxia or hypercapnia; E43 Unspecified severe protein-calorie malnutrition; J20.8 Acute bronchitis due to other specified organisms; B97.29 Other coronavirus as the cause of diseases classified elsewhere; F41.9 Anxiety disorder, unspecified; F17.200 Nicotine dependence, unspecified, uncomplicated; F10.10 Alcohol abuse, uncomplicated; I10 Essential (primary) hypertension; K21.9 Gastro-esophageal reflux disease without esophagitis; K42.9 Umbilical hernia without obstruction or gangrene; M16.11 Unilateral primary osteoarthritis, right hip; Z23 Encounter for immunization; Z99.3 Dependence on wheelchair
CPT/HCPCS: 84484-ER; 96374; 97161-GP; 97165-GO; 97530-GP; 97535-GO; G0009; J1650; J2060; J2405; J2920; J2930; J7512; J7613